=== PATIENT | female | born 1955 | race Caucasian/White ===

== ENCOUNTER 2016-11-11 14:47 | Inpatient (IN) ==
[2016-11-11 17:39] LABS: Basophils % 0.3 %; Eosinophils # 0.2 K/mcL (0.0-0.6); Eosinophils % 2.3 %; Hemoglobin 14.2 g/dL (11.5-15.4); Immature Granulocytes % 0.3 % (0-4); Lymphocytes # 1.7 K/mcL (0.6-4.6); Lymphocytes % 24.5 %; Mean Corpuscular HGB Conc 35.5 g/dL (31.6-35.5); Mean Corpuscular Hemoglobin 30.6 pg (28.0-33.3); Mean Corpuscular Volume 86.2 fL (83.0-100.0); Mean Platelet Volume 9.5 fL (9.4-12.4); Monocytes # 0.5 K/mcL (0.0-1.3); Monocytes % 7.4 %; Neutrophils # 4.5 K/mcL (1.6-8.9); Platelet Count 116 K/mcL (140-400); Red Blood Count 4.64 M/mcL (3.82-4.97); Red Cell Distribution Width 12.6 % (11.5-14.5); Segmented Neutrophils % 65.2 %
[2016-11-11 18:01] LABS: Alanine Aminotransferase 58 Units/L (0-55); Albumin 3.5 g/dL (3.5-5.0); Albumin/Globulin Ratio 0.9 (1.1-2.2); Alkaline Phosphatase 81 Units/L (38-126); Amylase 67 Units/L (25-125); Aspartate Amino Transferase 63 Units/L (5-34); BUN/Creatinine Ratio 22 (6-26); Bilirubin,Total 1.4 mg/dL (0.2-1.2); Blood Urea Nitrogen 18 mg/dL (7-20); Calcium 9.7 mg/dL (8.6-10.8); Carbon Dioxide 25 mEq/L (19-29); Chloride 106 mEq/L (98-109); Globulin 3.9 g/dL (2.4-3.5); Glucose 119 mg/dL (70-99); Lipase 21 Units/L (8-78); Osmolality,Calculated 293 (280-300); Potassium 4.3 mEq/L (3.5-4.5); Sodium 140 mEq/L (136-145); Total Protein 7.4 g/dL (6.0-8.3); eGFR For African Americans > 60 (> 60); eGFR For Non-African Americans > 60 (> 60)
[2016-11-11 19:40] LABS: Bilirubin,Urine Negative (Negative); Blood,Urine Small (Negative); Clarity,Urine Clear (Clear); Color,Urine Yellow (Yellow); Glucose,Urine (UA) Normal (Normal); Ketones,Urine Negative (Negative); Leukocyte Esterase,Urine Negative (Negative); Nitrite,Urine Negative (Negative); PH,Urine 5.5 pH Units (5.0-8.0); Protein,Urine 30 mg/dL (Neg-Trace); Specific Gravity,Urine 1.022 (1.010-1.025); Urobilinogen,Urine Normal (Normal)
[2016-11-11 19:43] LABS: Bacteria,Urine None Seen per hpf (None-Few); Hyaline Casts,Urine None Seen per lpf (None-Few); Squamous Epithelial Cell,Urine Many per lpf (None-Few)
[2016-11-11] MEDS ORDERED: 0.9 % Sodium Chloride 1,000 ML IVC ONE (19:43)
[2016-11-11] MEDS ORDERED: Ondansetron 4 MG/2 ML VIAL IVP ONE (19:44)
[2016-11-11] MEDS ORDERED: *HR* HYDROmorphone (PF) 1 MG/ML SYRINGE IVP ONE ×2 (19:44→22:28)
--- NOTE | 2016-11-11 19:46 | Emergency Department Note ---
Disposition Clinical Impression: Gallstones, Elevated bilirubin, Elevated liver enzymes Abdominal pain Qualifiers: Abdominal location: unspecified location Qualified Code(s): R10.9 - Unspecified abdominal pain Disposition: Admitted As Inpatient Condition: Good Abdominal Pain HPI - General Chief Complaint: ED Abdominal Pain Stated Complaint: back, ABD Pain N/V Time Seen by Provider: 11/11/16 19:22 Source: patient Mode of arrival: ambulatory Limitations: no limitations Nursing Notes Reviewed: Yes Vital Signs Reviewed: Yes - History of Present Illness HPI Narrative: Patient here for evaluation of right upper quadrant pain that started approximately 2 days ago. Patient has a history of hepatitis C as well as previous bladder sling and hysterectomy. Patient states that she has been having worsening abdominal pain that has been sharp and stabbing in nature. Pain located in right upper quadrant. 10 out of 10. Relatively constant in nature and worse with movements. Radiates to the back is worse with breaths. Patient describes nausea and anorexia. No vomiting. No diarrhea. Constipation over 2 weeks. 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 Patient states that she is following at outside facility but is not currently undergoing treatment. Hepatitis C is causing cirrhosis but she is not aware of plan or treatment course. Pain Scale: 8 - Related Data Home Medications Medication Instructions Recorded Confirmed Albuterol Neb [Proventil Neb] 2.5 mg IH Q6H PRN 11/11/16 11/11/16 Albuterol Sulfate [Albuterol 2 puff IH Q6HR PRN 11/11/16 11/11/16 Inhaler] Gabapentin [Neurontin] 600 mg PO TID 11/11/16 11/11/16 Ibuprofen [Motrin] 200 mg PO Q6HR 11/11/16 11/11/16 Insulin Glargine [Lantus] 50 unit SQ QAM PRN 11/11/16 11/11/16 Lidocaine 4% CRM (LMX) [Lmx 4] 1 appl TP QID PRN 11/11/16 11/11/16 Lisinopril/Hydrochlorothiazide 1 tab PO DAILY 11/11/16 11/11/16 [Zestoretic 20-25 mg Tablet] Metformin HCl [Glucophage] 1,000 mg PO BID 11/11/16 11/11/16 Polyethylene Glycol 3350 [Purelax] 17 gm PO DAILY 11/11/16 11/11/16 Allergies Allergy/AdvReac Type Severity Reaction Status Date / Time latex Allergy Hives Verified 11/11/16 15:04 propoxyphene [From Darvon] Allergy Hives Verified 11/11/16 15:04 ondansetron AdvReac Vomiting Verified 11/11/16 22:28 [From Zofran (as hydrochloride)] Review of Systems: CONSTITUTIONAL: No weight loss, fever, chills, weakness or fatigue. HEENT: Eyes: No visual changes. Ears, Nose, Throat: No hearing loss, difficulty talking or unable to swallow. SKIN: No rash or itching. CARDIOVASCULAR: No chest pain, chest pressure or chest discomfort. No palpitations or edema. RESPIRATORY: No shortness of breath, cough or sputum. GASTROINTESTINAL: abdominal pain. nausea. anorexia. GENITOURINARY: No burning on urination or hematuria. NEUROLOGICAL: No headache, dizziness, syncope, paralysis, ataxia, numbness or tingling in the extremities. No change in bowel or bladder control. MUSCULOSKELETAL: No muscle pain, back pain, joint pain or stiffness. 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: no MOLD PREPARER history Psychiatric history: Reports: no psych history, depression - Social History Smoking status: Current every day smoker Alcohol use: Reports: none Drug use: Reports: none Physical Exam General appearance: NAD, conversant Eyes: anicteric sclerae, moist conjunctivae; PERRL HENT: Atraumatic; oropharynx clear with moist mucous membranes and no mucosal ulcerations Neck: Normal inspection; Trachea midline; FROM, supple Lungs: CTA, with normal respiratory effort and no intercostal retractions CV: RRR, no MRGs Abdomen: Significant right upper quadrant tenderness with guarding and rebound. Extremities: No peripheral edema or extremity lymphadenopathy Skin: Normal temperature; no rash, ulcers or lesions Psych: Appropriate mood and affect Neuro: alert and oriented to person, place and time - General Limitations: no limitations General appearance: alert Course Course Narrative: Patient had a prolonged wait time in the emergency department with labs resulting prior to me seeing the patient. Patient has elevated bilirubin and AST ALT. No previous lab results the computer. Patient will receive right upper quadrant ultrasound. - Reevaluation(s) Reevaluation #1: Patient pain medications or by cutting her pain in half however to starting to come back. Patient will be given more medication. - Consultations Consultation #1: Patient with elevated bilirubin as well as liver enzymes. Patient's right upper quadrant scan shows gallstones with a dilated gallbladder and dilated common bile duct. This was discussed with Dr. Cuellar and the patient was accepted for further investigation and treatment. Vital Signs Temperature 97.9 F 11/11/16 15:04 Pulse Rate 76 11/11/16 15:04 Respiratory Rate 20 11/11/16 15:04 Blood Pressure 179/72 11/11/16 15:04 O2 Sat by Pulse Oximetry 96 11/11/16 15:04 Temperature 97.9 F 11/11/16 15:04 Pulse Rate 76 11/11/16 15:04 Respiratory Rate 20 11/11/16 15:04 Blood Pressure 179/72 11/11/16 15:04 O2 Sat by Pulse Oximetry 96 11/11/16 15:04 Oxygen Delivery Oxygen Delivery Room Air Abdominal Pain - Lab Data Result diagrams: 11/11/16 17:14 11/11/16 17:14 Lab Results 11/11/16 11/11/16 11/11/16 Range/Units 17:14 17:14 19:30 WBC 6.9 (4.3-11.1) K/mcL RBC 4.64 (3.82-4.97) M/mcL Hgb 14.2 (11.5-15.4) g/dL Hct 40.0 (35.3-44.9) % MCV 86.2 (83.0-100.0) fL MCH 30.6 (28.0-33.3) pg MCHC 35.5 (31.6-35.5) g/dL RDW 12.6 (11.5-14.5) % Plt Count 116 L (140-400) K/mcL MPV 9.5 (9.4-12.4) fL Immature Gran % 0.3 (0-4) % Seg Neutrophils % 65.2 % Lymphocytes % 24.5 % Monocytes % 7.4 % Eosinophils % 2.3 % Basophils % 0.3 % Neutrophils # 4.5 (1.6-8.9) K/mcL Lymphocytes # 1.7 (0.6-4.6) K/mcL Monocytes # 0.5 (0.0-1.3) K/mcL Eosinophils # 0.2 (0.0-0.6) K/mcL Basophils # 0.0 (0.0-0.2) K/mcL Sodium 140 (136-145) mEq/L Potassium 4.3 (3.5-4.5) mEq/L Chloride 106 (98-109) mEq/L Carbon Dioxide 25 (19-29) mEq/L BUN 18 (7-20) mg/dL Creatinine 0.83 (0.57-1.11) mg/dL Est GFR ( Amer) > 60 (> 60) Est GFR (Non-Af Amer) > 60 (> 60) BUN/Creatinine Ratio 22 (6-26) Glucose 119 H (70-99) mg/dL Calculated Osmolality 293 (280-300) Calcium 9.7 (8.6-10.8) mg/dL Total Bilirubin 1.4 H (0.2-1.2) mg/dL AST 63 H (5-34) Units/L ALT 58 H (0-55) Units/L Alkaline Phosphatase 81 (38-126) Units/L Serum Total Protein 7.4 (6.0-8.3) g/dL Albumin 3.5 (3.5-5.0) g/dL Globulin 3.9 H (2.4-3.5) g/dL Albumin/Globulin Ratio 0.9 L (1.1-2.2) Amylase 67 (25-125) Units/L Lipase 21 (8-78) Units/L Urine Color Yellow (Yellow) Urine Clarity Clear (Clear) Urine pH 5.5 (5.0-8.0) pH Units Ur Specific [place] 1.022 (1.010-1.025) Urine Protein 30 H (Neg-Trace) mg/dL Urine Glucose (UA) Normal (Normal) mg/dL Urine Ketones Negative (Negative) mg/dL Urine Blood Small H (Negative) Urine Nitrite Negative (Negative) Urine Bilirubin Negative (Negative) Urine Urobilinogen Normal (Normal) mg/dL Ur Leukocyte Esterase Negative (Negative) Urine Microscopic RBC 3-5 H (0-3) per hpf Urine Microscopic WBC 3-5 H (0-3) per hpf Ur Squamous Epith Cells Many H (None-Few) per lpf Urine Bacteria None Seen (None-Few) per hpf Hyaline Casts None Seen (None-Few) per lpf Ur Culture Indicated? NO (NO) Attestation Statement - Attestation Attestation: I, Jack Bonilla MD, personally evaluated this patient and discussed their management with the resident physician. I reviewed the resident's note and agree with the documented findings, medical decision making, and plan of care. 61-year-old female presents with a complaint of right upper quadrant pain radiating to the right back which started 2-3 days prior to arrival. No fever. Some nausea and vomiting. She states that she has a history of gallstones. On examination patient is a well-developed well-nourished female in no acute distress. She is alert and oriented 3. There is no cyanosis or diaphoresis. Breath sounds are clear and equal bilaterally. Heart regular rate and rhythm. Abdomen is soft with normal bowel sounds. There is mild to moderate right upper quadrant tenderness on direct palpation with no guarding or rebound tenderness. Mild right CVA tenderness. Labs reviewed. Chest x-ray negative. Abdomen x-ray shows a nonspecific bowel gas pattern. Right upper quadrant ultrasound shows cholelithiasis with a distended gallbladder and mildly dilated common bile duct. The hospitalist, Dr. Cuellar, was consulted and accepted admission of the patient.
[2016-11-11] MEDS ORDERED: *HR* Promethazine 25 MG/ML VIAL IVP ONE (19:55)
[2016-11-11] MEDS ORDERED: Naloxone 0.4 MG/ML INJ IVP PRN (22:39)
[2016-11-11] MEDS ORDERED: Ondansetron 4 MG/2 ML VIAL IVP PRN (22:39)
[2016-11-11] MEDS ORDERED: NON-FORMULARY MEDICATION 1 EACH EACH (Insulin Glargine [Lantus] 50 UNIT) SQ PRN (22:42)
--- NOTE | 2016-11-11 22:45 | Internal Med History&Physical ---
Date of Encounter: 11/11/16 Time of Encounter: 22:45 Assessment and Plan (1) Cholelithiasis Current visit: Yes Status: Acute Acute RUQ pain likely secondary to cholelithiasis - no evidence of obstruction US GB reveals cholelithiasis with distended gallbladder and mildly dilated CBD Keep patient NPO, continue IV fluids, IV morphine PRN, IV Phenergan PRN Bilirubin 1.4, alkaline phosphatase 81 Gen. surgery consult No evidence for cholecystitis - empiric Flagyl and Levaquin Qualifiers: Cholelithiasis location: gallbladder Cholecystitis presence: without cholecystitis Biliary obstruction: without biliary obstruction Qualified Code(s): K80.20 - Calculus of gallbladder without cholecystitis without obstruction (2) Type 2 diabetes mellitus Current visit: Yes Status: Chronic Type 2 diabetes mellitus, [id number], hyperglycemia Sliding scale insulin, glucose checks Qualifiers: Diabetes mellitus complication status: without complication Diabetes mellitus nursing home insulin use: without automobile damage field appraiser use Qualified Code(s): E11.9 - Type 2 diabetes mellitus without complications (3) COPD (chronic obstructive pulmonary disease) Current visit: Yes Status: Chronic Chronic COPD secondary to tobacco abuse, not in exacerbation Continue albuterol breathing treatment Qualifiers: COPD type: unspecified COPD Qualified Code(s): J44.9 - Chronic obstructive pulmonary disease, unspecified (4) Tobacco abuse Current visit: Yes Status: Chronic Smokes about 1 pack of cigarettes a day Counseled about cessation, nicotine patch (5) Hepatitis C Current visit: Yes Status: Chronic Chronic hepatitis C with hepatic cirrhosis - secondary to history of IV drug use Follows-up at outside facility Qualifiers: Viral hepatitis chronicity: chronic Qualified Code(s): B18.2 - Chronic viral hepatitis C (6) Chronic pain Current visit: Yes Status: Chronic Chronic pain secondary to osteoarthritis and also spinal stenosis and scoliosis as per patient Patient is on methadone and follows up with pain management Qualifiers: Chronic pain type: other chronic pain Qualified Code(s): G89.29 - Other chronic pain (7) DVT prophylaxis Current visit: Yes Status: Acute Continue heparin subcutaneous Internal Medicine - H&P: HPI Chief complaint: Abdominal pain Admitted From: Emergency Dept History of present illness: Ms. Casper is a 61 year old female with past medical history of diabetes, hypertension, arthritis, spinal stenosis, hepatitis C and COPD. Patient presents to the ED with complaints of abdominal pain, mainly in the right upper quadrant that started about 4 days ago. Patient states symptoms have gradually worsened. Patient initially started in her back on the right side and gradually moved to the right upper quadrant. Patient states last night pain was severe and almost 10 out of 10. She had several episodes of vomiting and continues to have nausea now. She was unable to keep anything down. She decided to come into the ED because of the sharp and stabbing pain, which is been worsening. Pain is almost constant and is worse with movement. Pain seems to be alleviated with IV pain medication. Patient denies diarrhea, denies chest pain, denies shortness of breath or palpitations denies headaches or dizziness. No other associated symptoms. Patient does have a history of hepatitis C related to IV drug use, but she has been clean for almost 30 years. Patient does follow up at his outside facility for her hepatitis C and cirrhosis. On examination patient is awake and alert. Not in any distress. She is able to provide all history. No family members at bedside. Patient has been explained about her condition and plan of care in detail. She understood and agreed. No unanswered questions. Chest x-ray does not show any acute process. Ultrasound of gallbladder shows cholelithiasis with gallbladder distention but no evidence of cholecystitis. Patient's bilirubin is elevated. She is being placed in observation in view of cholelithiasis causing right upper quadrant pain. Patient will be kept nothing by mouth and will be on IV fluids and IV pain medication as needed and IV Phenergan as needed. Surgery consult in a.m. CODE STATUS full code. Past Med Surg Social Fam HX - Past Medical History Source: patient Medical history: arthritis (spinal stenosis, scoliosis), COPD, diabetes, hepatitis, hypertension, other Psychiatric history: no psych history, depression - Past Surgical History Surgical History: hip replacement (b/l), orthopedic, other (left knee arthroscopy, b/l rotator cuff repair), other (bladder sling) - Social History Smoking Status: Current every day smoker Packs per day: 1 Smokeless Tobacco Status: No Alcohol use: none Drug use: none - Family History Father Hx Family Cardiac Disorders: Yes Mother Hx Family Medical Disorders: Yes Internal Medicine - H&P: Meds Albuterol Neb [Proventil Neb] 2.5 mg IH Q6H PRN 11/11/16 [History] Albuterol Sulfate [Albuterol Inhaler] 2 puff IH Q6HR PRN 11/11/16 [History] Gabapentin [Neurontin] 600 mg PO TID 11/11/16 [History] Ibuprofen [Motrin] 200 mg PO Q6HR 11/11/16 [History] Insulin Glargine [Lantus] 50 unit SQ QAM PRN 11/11/16 [History] Lidocaine 4% CRM (LMX) [Lmx 4] 1 appl TP QID PRN 11/11/16 [History] Lisinopril/Hydrochlorothiazide [Zestoretic 20-25 mg Tablet] 1 tab PO DAILY 11/11 [History] Metformin HCl [Glucophage] 1,000 mg PO BID 11/11/16 [History] Polyethylene Glycol 3350 [Purelax] 17 gm PO DAILY 11/11/16 [History] Allergies latex Allergy (Verified 11/11/16 15:04) Hives propoxyphene [From Darvon] Allergy (Verified 11/11/16 15:04) Hives ondansetron [From Zofran (as hydrochloride)] Adverse Reaction (Verified 22:28) Vomiting All Systems PM: A 10-system review of systems was performed and is negative for pertinent findings except as documented above in the HPI. - Constitutional Constitutional: fatigue - EENT Eyes: no blurry vision - Cardiovascular Cardiovascular ROS IM: no chest pain, no diaphoresis, no dyspnea, no dyspnea on exertion, no lightheadedness, no orthopnea - Respiratory Respiratory: no cough, no dyspnea, no dyspnea on exertion, no wheezing, no chest congestion - Gastrointestinal Gastrointestinal: abdominal pain, nausea, vomiting, no cramping, no diarrhea, no dysphagia - Genitourinary Genitourinary: flank pain, no dysuria, no urinary urgency - Musculoskeletal Musculoskeletal ROS IM: arthralgias, back pain - Neurological Neurological ROS: no abnormal gait, no abnormal speech, no dizziness, no focal weakness, no loss of vision - Constitutional Vitals: Temp Pulse Resp BP Pulse Ox 97.9 F 76 20 179/72 96 11/11/16 15:04 11/11/16 15:04 11/11/16 15:04 11/11/16 15:04 11/11/16 15:04 General appearance: Present: A&O X 3, no acute distress, answers questions appropriately - Head Head exam: Present: atraumatic - Eye Eye exam: Present: EOMI - ENT ENT exam: Present: mucous membranes dry - Neck Neck exam general surgery: Present: supple - Respiratory Respiratory exam: Present: CTAB. Absent: rhonchi, wheezes - Cardiovascular Cardiovascular exam: Present: RRR, +S1, +S2 - GI/Abdominal GI/Abdominal exam: Present: soft, tenderness (RUQ tenderness, with mild right CVA tenderness). Absent: firm, guarding, no peritoneal signs - Extremities Exam Extremities exam: Present: warm, radial pulses palpable and symetrical. Absent : cyanotic, pedal edema - Neurological Exam Neurological exam: Present: alert, oriented X3, no focal deficits Internal Med - H&P Results - Labs CBC & Chem 7: 11/11/16 17:14 11/11/16 17:14
[2016-11-11] MEDS ORDERED: Dextrose Gel 15 GM PO PRN ×2 (22:52)
[2016-11-11] MEDS ORDERED: *HR* Dextrose 50 % in Water (Syg) 50 ML SYRINGE IVP PRN (22:52)
[2016-11-11] MEDS ORDERED: D5% in Water 1,000 ML IVC PRN (22:52)
[2016-11-11 23:13] LABS: Hemoglobin A1C 6.7 %
[2016-11-11] MEDS ORDERED: Promethazine 12.5 MG in 0.9 % Sodium Chloride 50 ML IVPB PRN (23:27)
[2016-11-11] MEDS: 0.9 % Sodium Chloride 1,000 ML IVC SCH (23:40)
[2016-11-11] MEDS: MetroNIDAZOLE 500 MG/100 ML 500 MG/100 ML BAG IVPB SCH (23:41)
[2016-11-11] MEDS: Levofloxacin 750 MG/150 ML 750 MG/150 ML BAG IVPB SCH (23:42)
[2016-11-11] MEDS: Insulin LISPRO 300 UNITS/3 ML VIAL SQ SCH (23:46)
[2016-11-11] MEDS: Insulin DETEMIR 100 UNIT/ML X5UNITS SQ SCH (23:46)
[2016-11-11] MEDS: Nicotine 21 MG PATCH.TD24 TD SCH (23:52)
[2016-11-12] MEDS ORDERED: *HR* Promethazine 25 MG/ML VIAL IVP PRN (01:29)
[2016-11-12] MEDS: *HR* Morphine 2 MG/ML SYRINGE IVP PRN ×2 (03:25→07:56)
[2016-11-12] MEDS: Albuterol 2.5 MG/3 ML NEBULIZER IH SCH ×4 (03:58→21:37)
[2016-11-12 05:24] LABS: Mean Platelet Volume 9.7 fL (9.4-12.4); Red Blood Count 3.89 M/mcL (3.82-4.97); Red Cell Distribution Width 12.7 % (11.5-14.5); Segmented Neutrophils % 46.5 %
[2016-11-12 05:26] LABS: Basophils % 0.5 %; Eosinophils # 0.2 K/mcL (0.0-0.6); Eosinophils % 3.6 %; Hematocrit 33.8 % (35.3-44.9); Hemoglobin 12.1 g/dL (11.5-15.4); Immature Granulocytes % 0.2 % (0-4); Immature Platelets 2.3 % (1.1-6.1); Lymphocytes # 2.3 K/mcL (0.6-4.6); Lymphocytes % 38.9 %; Mean Corpuscular HGB Conc 35.8 g/dL (31.6-35.5); Mean Corpuscular Hemoglobin 31.1 pg (28.0-33.3); Mean Corpuscular Volume 86.9 fL (83.0-100.0); Monocytes # 0.6 K/mcL (0.0-1.3); Monocytes % 10.3 %; Neutrophils # 2.7 K/mcL (1.6-8.9); Platelet Count 107 K/mcL (140-400)
[2016-11-12] MEDS ORDERED: *HR* HYDROmorphone (PF) 1 MG/ML SYRINGE IVP ONE (05:40)
[2016-11-12] MEDS: *HR* Heparin 5,000 UNIT/ML VIAL SQ SCH ×2 (05:48→17:13)
[2016-11-12] MEDS: Famotidine 20 MG/2 ML VIAL IVP SCH ×2 (05:48→17:13)
[2016-11-12] MEDS: Insulin LISPRO 300 UNITS/3 ML VIAL SQ SCH ×3 (06:36→17:12)
[2016-11-12] MEDS: Insulin DETEMIR 100 UNIT/ML X5UNITS SQ SCH (07:57)
[2016-11-12] MEDS: Nicotine 21 MG PATCH.TD24 TD SCH (07:57)
[2016-11-12] MEDS: MetroNIDAZOLE 500 MG/100 ML 500 MG/100 ML BAG IVPB SCH ×3 (07:58→22:53)
[2016-11-12] MEDS: Levofloxacin 750 MG/150 ML 750 MG/150 ML BAG IVPB SCH (07:58)
[2016-11-12 08:18] LABS: Albumin 3.2 g/dL (3.5-5.0); Albumin/Globulin Ratio 0.8 (1.1-2.2); Bilirubin,Direct 0.6 mg/dL (0.0-0.5); Bilirubin,Indirect 0.5 mg/dL (0.0-1.2); Bilirubin,Total 1.1 mg/dL (0.2-1.2); Globulin 3.8 g/dL (2.4-3.5)
[2016-11-12] MEDS ORDERED: *HR* HYDROmorphone 2 MG/ML SYRINGE IVP PRN (10:52)
--- NOTE | 2016-11-12 11:01 | Internal Med Progress Note ---
Date of Encounter: 11/12/16 Time of Encounter: 09:40 - Assessment and plan (1) Gallstones Current Visit: Yes Status: Acute Assessment and plan: Surgery consult is in. Gallbladder Ultrasound 11/11/16 19:39 IMPRESSION: Cholelithiasis with gallbladder distention but absent sonographic Scott sign. Mildly dilated common bile duct at 7.5 mm. Consider further evaluation with hepatobiliary scan if there is continued concern for cholecystitis. Mildly nodular hepatic contour suggesting underlying cirrhosis. D/ / 11/11/2016 20:54:34 Unruly Kramer MD / bob Interpreting Provider: Unruly Kramer MD (2) Elevated bilirubin Current Visit: Yes Status: Acute (3) Elevated liver enzymes Current Visit: Yes Status: Acute Assessment and plan: ALT has returned to normal, AST is only slightly elevated at 54. Amylase and lipase are within normal limits. (4) Abdominal pain Current Visit: Yes Status: Acute Assessment and plan: Abdomen is tender in the right upper quadrant. Patient is in obvious distress. Elevated liver enzymes as well as noted cholelithiasis in the bladder ultrasound was done. She is being treated empirically with Flagyl and Levaquin. There is a GI consult as well as surgical consult. Abdomen is tender diffusely, however is worsened right upper quadrant. Hepatomegaly is noted, and Scott sign is positive. Continue pain control Continue IV fluids Wait on above consults Continue IV antibiotics Monitor labs Qualifiers: Abdominal location: right upper quadrant Qualified Code(s): R10.11 - Right upper quadrant pain (5) Type 2 diabetes mellitus Current Visit: Yes Status: Chronic Assessment and plan: Sliding scale insulin Diabetic diet when patient is able to eat. Accu-Cheks before meals and at bedtime A1c is 6.7. Qualifiers: Diabetes mellitus complication status: without complication Diabetes mellitus meterman insulin use: without senior living use Qualified Code(s): E11.9 - Type 2 diabetes mellitus without complications (6) COPD (chronic obstructive pulmonary disease) Current Visit: Yes Status: Chronic Assessment and plan: No acute exacerbation. Continue to monitor and continue home medications. Qualifiers: COPD type: unspecified COPD Qualified Code(s): J44.9 - Chronic obstructive pulmonary disease, unspecified (7) Tobacco abuse Current Visit: Yes Status: Chronic Assessment and plan: Patient is unable to discuss this at this time. We will discuss smoking cessation prior to discharge. (8) Hepatitis C Current Visit: Yes Status: Chronic Qualifiers: Viral hepatitis chronicity: chronic Qualified Code(s): B18.2 - Chronic viral hepatitis C (9) Cholelithiasis Current Visit: Yes Status: Acute Assessment and plan: Per ultrasound. Plan as above Qualifiers: Cholelithiasis location: gallbladder Cholecystitis presence: without cholecystitis Biliary obstruction: without biliary obstruction Qualified Code(s): K80.20 - Calculus of gallbladder without cholecystitis without obstruction (10) Chronic pain Current Visit: Yes Status: Chronic Qualifiers: Chronic pain type: other chronic pain Qualified Code(s): G89.29 - Other chronic pain (11) DVT prophylaxis Current Visit: Yes Status: Acute Assessment and plan: Patient is ambulatory. - Time Spent With Patient less than 15 minutes - Subjective Interval history: Patient was seen and assessed this morning at 9:40 AM. She is in obvious discomfort. She is sitting on the side of the bed and over the bedside table, shaking her leg, she is up pacing in the room, she is tearful. Right upper quadrant is tender to palpation, hepatomegaly noted. She is been unable to eat for a couple of days. She reports 10 out of 10 right upper quadrant pain with radiation around and right mid back pain. She said it is constant, dull with intermittent sharp stabbing pain. She said the pain started 4-5 days ago and she has been vomiting for 2 days with dry heaves noted now. Morphine is not helping her. She said that she has had morphine in the past which is not successful. I have switched her to Dilaudid 0.5 mg IV every 4 hours as needed. She already has Phenergan ordered. There is a GI and surgery consult pending today. - Constitutional Vitals: Temp Pulse Resp BP Pulse Ox 97.6 F 64 16 156/64 94 11/12/16 07:38 11/12/16 07:38 11/12/16 07:38 11/12/16 07:38 11/12/16 07:38 General appearance: Present: A&O X 3, no acute distress, severe distress, answers questions appropriately - Head Head exam: Present: normal inspection - Eye Eye exam: Present: normal appearance, conjuntiva pink - ENT ENT exam: Present: mucous membranes moist, normal exam - Neck Neck exam general surgery: Present: normal inspection. Absent: lymphadenopathy , tenderness - Respiratory Respiratory exam: Present: CTAB. Absent: rales, respiratory distress, rhonchi, stridor, wheezes - Cardiovascular Cardiovascular exam: Present: RRR, +S1, +S2, tachycardia. Absent: bradycardia, clicks, diastolic murmur, distant heart sounds, gallop, systolic murmur - GI/Abdominal GI/Abdominal exam: Present: diminished bowel sounds, hepatomegaly, normal bowel sounds, tenderness - Extremities Exam Extremities exam: Present: normal inspection, warm, radial pulses palpable and symetrical. Absent: pedal edema - Neurological Exam Neurological exam: Present: alert, oriented X3, no focal deficits. Absent: facial droop, speech deficit - Skin Skin exam: Present: dry, normal color, rash, warm Internal Medicine: Result - Labs CBC & Chem 7: 11/12/16 05:15 11/11/16 17:14 Labs: Short CBC 11/12/16 Range/Units 05:15 WBC 5.8 (4.3-11.1) K/mcL Hgb 12.1 D (11.5-15.4) g/dL Hct 33.8 L (35.3-44.9) % Plt Count 107 L (140-400) K/mcL Neutrophils # 2.7 (1.6-8.9) K/mcL Liver Function 11/12/16 Range/Units 07:56 Total Bilirubin 1.1 (0.2-1.2) mg/dL Direct Bilirubin 0.6 H (0.0-0.5) mg/dL AST 54 H (5-34) Units/L ALT 50 (0-55) Units/L Alkaline Phosphatase 82 (38-126) Units/L Albumin 3.2 L (3.5-5.0) g/dL Consult Discharge Plan - Plan Referrals: NO,PCP [Primary Care Provider] -
--- NOTE | 2016-11-12 12:41 | General Surgery Consult Note ---
Date of Encounter: 11/12/16 Time of Encounter: 12:35 Assessment and Plan (1) Symptomatic cholelithiasis Current Visit: Yes Status: Acute patient with US showing distended gallbladder and pain is acute RUQ which radiates to her back, nausea and emesis Slight elevation lft's yesterday, improved today will plan laparoscopic cholecystectomy, possible cholangiograms/open tomorrow. risks and benefits discussed and she wishes to proceed will check for latex IgE will order PT/inr likely child bernardo A clears today, npo midnight (2) Elevated bilirubin Current Visit: Yes Status: Acute trend lfts (3) Abdominal pain Current Visit: Yes Status: Acute have increased dilaudid, prn pain control Qualifiers: Abdominal location: right upper quadrant Qualified Code(s): R10.11 - Right upper quadrant pain (4) Type 2 diabetes mellitus Current Visit: Yes Status: Chronic clears, SSI - management per hospitalists Qualifiers: Diabetes mellitus complication status: without complication Diabetes mellitus medical terminologist insulin use: without medical terminologist use Qualified Code(s): E11.9 - Type 2 diabetes mellitus without complications (5) COPD (chronic obstructive pulmonary disease) Current Visit: Yes Status: Chronic IS, pulmonary toilet management per hospitalist Qualifiers: COPD type: unspecified COPD Qualified Code(s): J44.9 - Chronic obstructive pulmonary disease, unspecified (6) Tobacco abuse Current Visit: Yes Status: Chronic nicotine patch (7) Hepatitis C Current Visit: Yes Status: Chronic will check quant Qualifiers: Viral hepatitis chronicity: chronic Hepatic coma status: without hepatic coma Qualified Code(s): B18.2 - Chronic viral hepatitis C (8) DVT prophylaxis Current Visit: Yes Status: Acute EPCDs History of Present Illness Consult date: 11/12/16 Reason for consult: gallstones Requesting physician: Belkis Potter History of present illness: Patient is 61 yo female whith RUQ pain radiating to her back for ~5 days now and the pain has progressively gotten worse. She has been having nausea and vomiting staring yesterday without hematemesis. She denies diarrhea and states she has issues with constipation. She denies fevers, chills or night sweats. She She has hepatitis C for many years from a history of drug abuse. She has cirrhosis of the liver but unsure what child bernardo category. She has no hisory of ascites, albumin normal on presentation, pt-pending. She states she has latex allergy - hives Past Med Surg Social Fam HX - Past Medical History Source: patient Medical history: arthritis, cirrhosis, COPD, diabetes, hepatitis (C), hypertension, other (spinal stenosis, scoliosis, heart murmur) Psychiatric history: no psych history, depression - Past Surgical History Surgical History: hip replacement (bilaterally), orthopedic, other (bilateral shoulder surgery (spurs-Lt, rotator cuff repair-Rt), Lt knee sx-spurs, tubal ligation), other - Social History Smoking Status: Current every day smoker (0.5-1.5 ppd x 45 yrs) Packs per day: 1 Smokeless Tobacco Status: No Alcohol use: none Drug use: none, other ("downers") Current living situation: Home - Independent - Family History Father Hx Family Cardiac Disorders: Yes Hx Family Endocrine Disorder: Yes (DM) Mother Hx Family Genitourinary Disorders: Yes (ckd) Hx Family Medical Disorders: Yes Medications and Allergies Albuterol Neb [Proventil Neb] 2.5 mg IH Q6H PRN 11/11/16 [History] Albuterol Sulfate [Albuterol Inhaler] 2 puff IH Q6HR PRN 11/11/16 [History] Gabapentin [Neurontin] 600 mg PO TID 11/11/16 [History] Ibuprofen [Motrin] 200 mg PO Q6HR 11/11/16 [History] Insulin Glargine [Lantus] 50 unit SQ QAM PRN 11/11/16 [History] Lidocaine 4% CRM (LMX) [Lmx 4] 1 appl TP QID PRN 11/11/16 [History] Lisinopril/Hydrochlorothiazide [Zestoretic 20-25 mg Tablet] 1 tab PO DAILY 11/11 [History] Metformin HCl [Glucophage] 1,000 mg PO BID 11/11/16 [History] Polyethylene Glycol 3350 [Purelax] 17 gm PO DAILY 11/11/16 [History] Allergies latex Allergy (Verified 11/11/16 15:04) Hives propoxyphene [From Darvon] Allergy (Verified 11/11/16 15:04) Hives ondansetron [From Zofran (as hydrochloride)] Adverse Reaction (Verified 22:28) Vomiting Review of Systems All systems PM: reviewed and no additional remarkable complaints except as stated All systems PM: A 10-system review of systems was performed and is negative for pertinent findings except as documented above in the HPI. General Surgery Exam Initial Vital Signs Temp Pulse Resp BP Pulse Ox 97.9 F 76 20 179/72 96 11/11/16 15:04 11/11/16 15:04 11/11/16 15:04 11/11/16 15:04 11/11/16 15:04 - General physical appearance moderate distress, moderate pain - Eyes PERRL, normal ocular movement - ENT normal mucosa, normocephalic - Neck trachea midline - Respiratory normal expansion, clear to auscultation - Cardiovascular Cardiovascular exam: Present: RRR, no murmurs/rubs/gallops - Abdomen Abdomen general surgery: Present: bowel sounds present, soft, tender. Absent: guarding, rebound Abdominal Tenderness: Present: RUQ - Integumentary Integumentary general surgery: Present: warm and dry, no abnormal pigmentation. Absent: diaphoresis - Neurologic Present: CN 2-12 grossly intact - Musculoskeletal Present: normal gait, normal posture - Psychiatric Psychiatric general surgery: Present: A&Ox3, speech is normal Exam Initial Vital Signs Temp Pulse Resp BP Pulse Ox 97.9 F 76 20 179/72 96 11/11/16 15:04 11/11/16 15:04 11/11/16 15:04 11/11/16 15:04 11/11/16 15:04 Results - Labs 11/12/16 05:15 11/11/16 17:14 Short CBC 11/12/16 11/11/16 Range/Units 05:15 17:14 WBC 5.8 6.9 (4.3-11.1) K/mcL Hgb 12.1 D 14.2 (11.5-15.4) g/dL Hct 33.8 L 40.0 (35.3-44.9) % Plt Count 107 L 116 L (140-400) K/mcL Neutrophils # 2.7 4.5 (1.6-8.9) K/mcL BMP 11/11/16 Range/Units 17:14 Sodium 140 (136-145) mEq/L Potassium 4.3 (3.5-4.5) mEq/L Chloride 106 (98-109) mEq/L Carbon Dioxide 25 (19-29) mEq/L BUN 18 (7-20) mg/dL Creatinine 0.83 (0.57-1.11) mg/dL Glucose 119 H (70-99) mg/dL Calcium 9.7 (8.6-10.8) mg/dL Liver Function 11/12/16 11/11/16 Range/Units 07:56 17:14 Total Bilirubin 1.1 1.4 H (0.2-1.2) mg/dL Direct Bilirubin 0.6 H (0.0-0.5) mg/dL AST 54 H 63 H (5-34) Units/L ALT 50 58 H (0-55) Units/L Alkaline Phosphatase 82 81 (38-126) Units/L Albumin 3.2 L 3.5 (3.5-5.0) g/dL Urine 11/11/16 Range/Units 19:30 Urine Color Yellow (Yellow) Urine Clarity Clear (Clear) Urine pH 5.5 (5.0-8.0) pH Units Ur Specific [place] 1.022 (1.010-1.025) Urine Protein 30 H (Neg-Trace) mg/dL Urine Glucose (UA) Normal (Normal) mg/dL Vital Signs Temp Pulse Resp BP Pulse Ox 11/12/16 11:02 97.6 F 60 16 123/77 99 11/12/16 07:38 97.6 F 64 16 156/64 94 11/12/16 03:22 97.6 F 91 16 111/59 98 11/12/16 00:30 99 11/11/16 23:38 98.5 F 73 16 135/66 99 11/11/16 22:56 18 136/80 11/11/16 15:04 97.9 F 76 20 179/72 96 Intake and Output 11/11/16 11/12/16 11/12/16 23:59 07:59 15:59 Intake Total 250 / 250 250 / 250 Balance 250 / 250 250 / 250 Intake: IV Fluids 250 / 250 250 / 250 Levaquin Premix 750mg/150 150 / 150 150 / 150 mL 750 mg In 150 ml @ 100 mls/hr IVPB DAILY [facility] Rx#:[id number] Flagyl Premix 500 MG/100 100 / 100 100 / 100 ML 500 mg In 100 ml @ 100 mls/hr IVPB Q8HR [facility] Rx# :[id number] Other: Weight 79.832 kg 82.69 kg Blood Glucose* 200 99 89 Patient Weight 11/12/16 23:59 Weight 82.69 kg - Imaging US - abdomen: report reviewed Consult Discharge Plan - Plan Referrals: NO,PCP [Primary Care Provider] -
[2016-11-12] MEDS ORDERED: *HR* HYDROmorphone (PF) 1 MG/ML SYRINGE IVP PRN (12:52)
[2016-11-12] MEDS: *HR* Promethazine 25 MG/ML VIAL IVP PRN ×2 (12:57→20:18)
[2016-11-12] MEDS: *HR* HYDROmorphone 2 MG/ML SYRINGE IVP PRN ×4 (12:57→20:22)
[2016-11-12 13:48] LABS: INR 1.2; Prothrombin Time 12.6 Seconds (9.4-12.1)
[2016-11-12] MEDS ORDERED: *HR* HYDROmorphone (PF) 1 MG/ML SYRINGE IVP SCH (15:00)
[2016-11-12] MEDS: 0.9 % Sodium Chloride 1,000 ML IVC SCH (17:12)
[2016-11-12] MEDS: *HR* HYDROmorphone (PF) 1 MG/ML SYRINGE IVP PRN (22:53)
[2016-11-13] MEDS: 0.9 % Sodium Chloride 1,000 ML IVC SCH ×4 (00:09→20:32)
[2016-11-13] MEDS: Insulin LISPRO 300 UNITS/3 ML VIAL SQ SCH ×5 (00:09→23:47)
[2016-11-13] MEDS: *HR* HYDROmorphone (PF) 1 MG/ML SYRINGE IVP PRN ×2 (01:15→05:37)
[2016-11-13] MEDS: *HR* Promethazine 25 MG/ML VIAL IVP PRN ×3 (02:09→16:52)
[2016-11-13 03:36] LABS: Immature Granulocytes % 0.2 % (0-4)
[2016-11-13 03:37] LABS: Alanine Aminotransferase 53 Units/L (0-55); Albumin 3.1 g/dL (3.5-5.0); Albumin/Globulin Ratio 0.9 (1.1-2.2); Alkaline Phosphatase 70 Units/L (38-126); Aspartate Amino Transferase 64 Units/L (5-34); BUN/Creatinine Ratio 15 (6-26); Bilirubin,Direct 0.5 mg/dL (0.0-0.5); Bilirubin,Indirect 0.6 mg/dL (0.0-1.2); Bilirubin,Total 1.1 mg/dL (0.2-1.2); Blood Urea Nitrogen 12 mg/dL (7-20); Calcium 8.8 mg/dL (8.6-10.8); Carbon Dioxide 24 mEq/L (19-29); Chloride 108 mEq/L (98-109); Globulin 3.5 g/dL (2.4-3.5); Glucose 87 mg/dL (70-99); Osmolality,Calculated 289 (280-300); Potassium 3.6 mEq/L (3.5-4.5); Sodium 140 mEq/L (136-145); Total Protein 6.6 g/dL (6.0-8.3); eGFR For African Americans > 60 (> 60); eGFR For Non-African Americans > 60 (> 60)
[2016-11-13 03:38] LABS: Basophils % 0.5 %; Eosinophils # 0.1 K/mcL (0.0-0.6); Eosinophils % 3.2 %; Hematocrit 35.8 % (35.3-44.9); Hemoglobin 12.6 g/dL (11.5-15.4); Immature Platelets 2.8 % (1.1-6.1); Lymphocytes # 1.3 K/mcL (0.6-4.6); Lymphocytes % 29.1 %; Mean Corpuscular HGB Conc 35.2 g/dL (31.6-35.5); Mean Corpuscular Hemoglobin 30.6 pg (28.0-33.3); Mean Corpuscular Volume 86.9 fL (83.0-100.0); Mean Platelet Volume 9.8 fL (9.4-12.4); Monocytes # 0.4 K/mcL (0.0-1.3); Monocytes % 9.7 %; Neutrophils # 2.5 K/mcL (1.6-8.9); Platelet Count 102 K/mcL (140-400); Red Blood Count 4.12 M/mcL (3.82-4.97); Red Cell Distribution Width 12.4 % (11.5-14.5); Segmented Neutrophils % 57.3 %
[2016-11-13] MEDS: Albuterol 2.5 MG/3 ML NEBULIZER IH SCH ×4 (04:05→22:39)
[2016-11-13] MEDS: *HR* Heparin 5,000 UNIT/ML VIAL SQ SCH ×2 (05:37→16:52)
[2016-11-13] MEDS: Famotidine 20 MG/2 ML VIAL IVP SCH ×2 (05:37→16:52)
[2016-11-13] MEDS ORDERED: Lidocaine -MPF 2% 2 ML VIAL ONE (07:17)
[2016-11-13] MEDS ORDERED: *HR* Rocuronium Bromide 50 MG/5 ML VIAL ONE (07:17)
[2016-11-13] MEDS ORDERED: *HR* FentaNYL (PF) 100 MCG/2 ML VIAL ONE (07:17)
[2016-11-13] MEDS ORDERED: *HR* Midazolam HCl 2 MG/2 ML VIAL ONE (07:17)
[2016-11-13] MEDS ORDERED: *HR* Propofol 200 MG/20 ML VIAL IVP ONE (07:17)
[2016-11-13] MEDS ORDERED: *HR* Succinylcholine 200 MG/10 ML VIAL IVP ONE (07:17)
[2016-11-13] MEDS ORDERED: Albuterol 2.5 MG/3 ML NEBULIZER ONE (07:28)
[2016-11-13] MEDS ORDERED: Albuterol 2.5 MG/3 ML NEBULIZER IH ONE (07:30)
[2016-11-13] MEDS ORDERED: *HR* Promethazine 25 MG/ML VIAL IVP PRN (07:38)
[2016-11-13] MEDS ORDERED: *HR* HYDROmorphone (PF) 1 MG/ML SYRINGE IVP PRN ×3 (07:38→16:50)
--- NOTE | 2016-11-13 07:38 | Anesthesia Evaluation PreOp ---
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 History: Other (chronic pain, spinal stenosis) Other Medical History: Hepatic (hepatitis C), Diabetes Type II Anesthesia History: Past Anesthesia, Problems (PONV) Alcohol Use: none Drug use: none, other ("downers") Medications and Allergies Albuterol Neb [Proventil Neb] 2.5 mg IH Q6H PRN 11/11/16 [History] Albuterol Sulfate [Albuterol Inhaler] 2 puff IH Q6HR PRN 11/11/16 [History] Gabapentin [Neurontin] 600 mg PO TID 11/11/16 [History] Ibuprofen [Motrin] 200 mg PO Q6HR 11/11/16 [History] Insulin Glargine [Lantus] 50 unit SQ QAM PRN 11/11/16 [History] Lidocaine 4% CRM (LMX) [Lmx 4] 1 appl TP QID PRN 11/11/16 [History] Lisinopril/Hydrochlorothiazide [Zestoretic 20-25 mg Tablet] 1 tab PO DAILY 11/11 [History] Metformin HCl [Glucophage] 1,000 mg PO BID 11/11/16 [History] Polyethylene Glycol 3350 [Purelax] 17 gm PO DAILY 11/11/16 [History] Allergies latex Allergy (Verified 11/11/16 15:04) Hives propoxyphene [From Darvon] Allergy (Verified 11/11/16 15:04) Hives ondansetron [From Zofran (as hydrochloride)] Adverse Reaction (Verified 22:28) Vomiting - Meds/Allergy Pre-op Review Medications Reviewed: Yes Allergies Reviewed: Yes Beta Blockers on Current Med List: No Anesthesia Results - Labs 11/13/16 02:43 11/13/16 02:43 Anesthesia Exam Vital Signs/O2 Sat/Glucose, Most Recent Temp Pulse Resp BP Pulse Ox 98.0 F 60 16 149/81 97 11/13/16 06:41 11/13/16 06:41 11/13/16 06:41 11/13/16 06:41 11/13/16 06:41 Blood Glucose* 116 Blood glucose: 116 Height: 5'7''/1.7m Weight: 181 lbs/82.418 kg NPO (# of Hours): 8 Pain Scale: 6 (abdomen) Pain Scale Used: Numeric (1 - 10) - HEENT Pupil (Motor): EOMI Mallampati: II Teeth: Edentulous Oral Opening: Greater than 3 - BUILDING CUSTODIAL SUPERVISOR LOC: Oriented BUILDING CUSTODIAL SUPERVISOR Motor: Normal RUE, Normal LUE, Normal RLE, Normal LLE, Normal Face BUILDING CUSTODIAL SUPERVISOR Sensory: Normal: RUE, LUE, Face, Deficit: RLE, LLE - Cardiac Rhythm: Regular Murmur: Systolic - Pulmonary Breath Sounds: bilateral Clear Respiratory Effort: Symmetrical Anesthesia Assess/Plan ASA Score: 3 Modified Hailey Scale for Level of Consciousness: Cooperative, oriented, and tranquil Anesthetic Plan: General Monitoring Plan: Standard Monitors Recovery Plan: PACU
[2016-11-13] MEDS ORDERED: Dexamethasone 4 MG/ML VIAL ONE (08:29)
[2016-11-13] MEDS ORDERED: *HR* HYDROmorphone 2 MG/ML SYRINGE ONE (08:35)
[2016-11-13] MEDS: Levofloxacin 750 MG/150 ML 750 MG/150 ML BAG IVPB SCH (08:46)
[2016-11-13] MEDS ORDERED: Metoclopramide 10 MG/2 ML VIAL ONE (08:57)
--- NOTE | 2016-11-13 09:19 | Operative Note ---
Date of procedure: 11/13/16 Pre-op diagnosis: symptomatic cholelithiasis Post-op diagnosis: other (acute cholecystitis) Procedure: Laparoscopic cholecystectomy with intraop cholangiograms Complications: none immediate Anesthesia: GETA, local Local Anesthetics: 0.5% Sensorcaine HCL SubQ (cc) (20), Isovue 300 Intravenous ( cc) (15), Other (0.5 mg glucagon) Surgeon: Elaine Worley Procurement Officer: Nat Schneider Estimated blood loss (cc): 10 Specimen: gallbladder and contents Condition: stable Disposition: PACU Procedure in Detail: The patient was brought into the operating suite and placed supine on the operating table. Sign-in was performed and everyone was in agreement. Anesthesia was induced and patient was endotracheally intubated by anesthesia without incident and they also placed an OG tube. The abdomen was prepped and draped in the usual sterile fashion. A timeout was performed again everyone was in agreement. A supraumbilical incision was made through the skin into the subcutaneous tissue with an 11 blade. Towel clamps were placed on either side of the umbilicus for retraction. S retractors were used to dissect down to the anterior abdominal wall linea alba fascia. A Veress needle was placed through this incision and a water drop test confirmed placement and the abdomen was insufflated. The abdomen was entered with a 5 mm 0 degree laparoscope on a 5 mm Optiview trocar. The area and entry was visualized was no bleeding and no apparent bowel injury. A 5 mm subxiphoid port was placed under direct visualization after first incising the skin with an 11 blade. A right upper quadrant subcostal position midclavicular line 5 mm port was placed under direct visualization after first incising skin with 11 blade. The laparoscope was placed in this and we exchanged the supraumbilical port for a 12 mm port under direct visualization. The last 5 mm port was placed in the right upper quadrant subcostal position anterior axillary line after first incising the skin with an 11 blade. The patient was placed in steep reverse Trendelenburg left side down position. The patient is known to have cirrhosis from hepatitis C and the liver was very nodular in appearance. The dome of the gallbladder was grasped and retracted cephalad. Omental adhesions to the body and infundibulum of the gallbladder were taken down bluntly with the [place]. The infundibulum was grasped and retracted laterally. Using the [place] we dissected out the cystic duct and cystic artery. Two 5 mm Hemoclips were placed proximally on the cystic artery and one distally and it was transected with curved scissors. A 5 mm metal Hemoclip was placed proximally on the cystic duct. The cystic duct was partially transected with curved scissors. Using the Padron clamp, the cholangiocatheter was introduced into the partially transected cystic duct with the [place]. A metal 5 mm hemoclip was placed across the proximal cystic duct and the cholangiocatheter. The catheter flushed easily. The patient was placed in Trendelenberg position. Cholangiograms were obtained showing contrast up into the left and right intrahepatic ducts down through the common hepatic and common bile duct into the duodenum. 15cc of Isovue was used for the cholangiograms patient was returned to reverse Trendelenburg left side down position. The clip on the cholangiocatheter and proximal cystic duct was removed as well as the cholangiocatheter. Two 5 mm hemoclips were placed distally on the cystic duct and it was transected with curved scissors. The gallbladder was removed off the cystic plate with the Bovie. Any bleeding points were stopped with the Bovie. The gallbladder was placed in a laparoscopic Endo Catch bag and removed via the supraumbilical incision site. The inferior edge of the liver was bluntly retracted cephalad and the cystic plate was copiously irrigated with sterile saline. There was no bleeding or apparent bile leak from the cystic plate and the clips on the cystic artery and duct were intact. All irrigation was suctioned free from the abdomen. All insufflation was suctioned free from the abdomen and the ports removed. The abdominal wall at the supraumbilical incision site was closed with a 0 Vicryl [id number] stitch. 20 mL of 0.5% Marcaine was injected subcutaneously at the 4 port sites. The skin at the three 5 mm port sites were closed with 4-0 Monocryl interrupted subcuticular stitches. The skin at the supraumbilical incision site was closed with a 4-0 Monocryl running subcuticular stitch. Steri -Strips were applied to all wounds. The patient was awoken in the operating suite having tolerated the procedure well and were taken to PACU in stable condition after all lap and ensuring counts were correct at the end of the case.
--- NOTE | 2016-11-13 10:07 | Anesthesia Evaluation Post Op ---
Date of Encounter: 11/13/16 Time of Encounter: 10:06 - Vital Signs Vital Signs: Vital Signs/O2 Sat, Most Current Temp Pulse Resp BP Pulse Ox 98.1 F 79 18 147/82 99 11/13/16 09:59 11/13/16 09:59 11/13/16 09:59 11/13/16 09:59 11/13/16 09:59 - Lungs Lungs: Clear Ascult./Percussion - Airway Airway: Non-obstructed - Cardiovascular Regular Rate - Mental Status Mental Status: Asleep with brisk response to light stimulation - Pain Pain Scale: 4 Pain Scale used: Numeric (1 - 10) - Nausea Vomiting Nausea Vomiting: Not Present - Hydration Hydration: NPO, Has not voided - Discharge PostOp Status: Transfer Patient to floor
[2016-11-13] MEDS ORDERED: Dextrose Gel 15 GM PO PRN ×2 (10:09)
[2016-11-13] MEDS ORDERED: Naloxone 0.4 MG/ML INJ IVP PRN (10:09)
[2016-11-13] MEDS ORDERED: *HR* Dextrose 50 % in Water (Syg) 50 ML SYRINGE IVP PRN (10:09)
[2016-11-13] MEDS ORDERED: *HR* OxyCODONE Immed Rel 5 MG TABLET PO PRN (10:09)
[2016-11-13] MEDS: MetroNIDAZOLE 500 MG/100 ML 500 MG/100 ML BAG IVPB SCH (10:09)
[2016-11-13] MEDS ORDERED: D5% in Water 1,000 ML IVC PRN (10:09)
--- NOTE | 2016-11-13 14:47 | Internal Med Progress Note ---
Date of Encounter: 11/13/16 Time of Encounter: 11:30 - Assessment and plan (1) Gallstones Current Visit: Yes Status: Acute Assessment and plan: Patient had laparoscopic cholecystectomy today. We will continue to monitor her condition and treat pain. Surgery following. Barring complications, patient will be discharged tomorrow. (2) Elevated bilirubin Current Visit: Yes Status: Acute (3) Elevated liver enzymes Current Visit: Yes Status: Acute Assessment and plan: Laparoscopic cholecystectomy today. Plan as above. (4) Abdominal pain Current Visit: Yes Status: Acute Assessment and plan: Laparoscopic cholecystectomy today. Abdomen tender postop. We will continue to monitor. Qualifiers: Abdominal location: right upper quadrant Qualified Code(s): R10.11 - Right upper quadrant pain (5) Type 2 diabetes mellitus Current Visit: Yes Status: Chronic Assessment and plan: Continue Accu-Cheks before meals and at bedtime. Diabetic diet when tolerated. Qualifiers: Diabetes mellitus complication status: without complication Diabetes mellitus nursing home insulin use: without nursing home use Qualified Code(s): E11.9 - Type 2 diabetes mellitus without complications (6) COPD (chronic obstructive pulmonary disease) Current Visit: Yes Status: Chronic Assessment and plan: No acute exacerbation. Continue home medications and monitor condition. Qualifiers: COPD type: unspecified COPD Qualified Code(s): J44.9 - Chronic obstructive pulmonary disease, unspecified (7) Tobacco abuse Current Visit: Yes Status: Chronic Assessment and plan: Patient was drowsy today. We will discuss smoking cessation tomorrow when she is more alert. (8) Hepatitis C Current Visit: Yes Status: Chronic Assessment and plan: Chronic hepatitis C with hepatic cirrhosis due to history of IV drug use. She does follow-up at an outside facility. Follow-up after surgery of discharge. Qualifiers: Viral hepatitis chronicity: chronic Hepatic coma status: without hepatic coma Qualified Code(s): B18.2 - Chronic viral hepatitis C (9) Cholelithiasis Current Visit: Yes Status: Resolved Qualifiers: Cholelithiasis location: gallbladder Cholecystitis presence: without cholecystitis Biliary obstruction: without biliary obstruction Qualified Code(s): K80.20 - Calculus of gallbladder without cholecystitis without obstruction (10) Chronic pain Current Visit: Yes Status: Chronic Assessment and plan: Chronic pain secondary to osteoarthritis and spinal stenosis. Patient is on methadone and follows up with pain management. Continue treatment outpatient after discharge. Qualifiers: Chronic pain type: other chronic pain Qualified Code(s): G89.29 - Other chronic pain (11) DVT prophylaxis Current Visit: Yes Status: Acute Assessment and plan: Postoperatively, patient has SCDs. - Subjective Interval history: Patient was seen and assessed at 11:30 AM. She just returned from surgery. She is still very drowsy she did briefly to answer questions. There is a male at the bedside. Vitals were stable her abdomen is soft, it was tender to even light palpation with stethoscope during auscultation. She had an ice pack to low abdomen there was some bruising noted. Puncture wound/incisions were intact Steri-Strips were intact. There was no bleeding or drainage. - Constitutional Vitals: Temp Pulse Resp BP Pulse Ox 97.5 F L 69 15 159/84 97 11/13/16 12:00 11/13/16 14:03 11/13/16 12:00 11/13/16 14:03 11/13/16 14:03 General appearance: Present: A&O X 1, pleasant, no acute distress, severe distress, answers questions appropriately - Head Head exam: Present: normal inspection - Eye Eye exam: Present: normal appearance, conjuntiva pink - ENT ENT exam: Present: mucous membranes moist, normal exam - Respiratory Respiratory exam: Present: CTAB. Absent: respiratory distress, stridor, wheezes - Cardiovascular Cardiovascular exam: Present: RRR, +S1, +S2. Absent: diastolic murmur, systolic murmur - GI/Abdominal GI/Abdominal exam: Present: diminished bowel sounds, soft, tenderness. Absent: distended, normal bowel sounds - Neurological Exam Neurological exam: Present: altered. Absent: facial droop, speech deficit - Skin Skin exam: Present: dry, normal color, warm Internal Medicine: Result - Labs CBC & Chem 7: 11/13/16 02:43 11/13/16 02:43 Labs: Short CBC 11/13/16 Range/Units 02:43 WBC 4.3 (4.3-11.1) K/mcL Hgb 12.6 (11.5-15.4) g/dL Hct 35.8 (35.3-44.9) % Plt Count 102 L (140-400) K/mcL Neutrophils # 2.5 (1.6-8.9) K/mcL BMP 11/13/16 02:43 Sodium 140 Potassium 3.6 Chloride 108 Carbon Dioxide 24 BUN 12 Creatinine 0.79 Glucose 87 Calcium 8.8 Liver Function 11/13/16 Range/Units 02:43 Total Bilirubin 1.1 (0.2-1.2) mg/dL Direct Bilirubin 0.5 (0.0-0.5) mg/dL AST 64 H (5-34) Units/L ALT 53 (0-55) Units/L Alkaline Phosphatase 70 (38-126) Units/L Albumin 3.1 L (3.5-5.0) g/dL - ABG Interpretation ABG results: PT/INR, D-dimer PT 12.6 Seconds (9.4-12.1) H 11/12/16 13:26 - Impressions Impressions Cholangiogram,Operative 11/13/16 00:00 IMPRESSION: Spot fluoroscopic images from intraoperative cholangiogram. No filling defect or extravasation of contrast. D/ / 11/13/2016 09:23:19 Ayden Zuniga MD / bcarter Interpreting Provider: Ayden Zuniga MD Consult Discharge Plan - Plan Referrals: NO,PCP [Primary Care Provider] -
[2016-11-13] MEDS: Gabapentin 300 MG CAPSULE PO SCH ×2 (15:11→20:40)
[2016-11-13] MEDS: Nicotine 21 MG PATCH.TD24 TD SCH (19:29)
[2016-11-13] MEDS: Insulin DETEMIR 100 UNIT/ML X5UNITS SQ SCH (19:29)
[2016-11-13] MEDS: *HR* OxyCODONE Immed Rel 5 MG TABLET PO PRN (20:32)
[2016-11-14] MEDS: *HR* OxyCODONE Immed Rel 5 MG TABLET PO PRN ×3 (01:44→14:01)
[2016-11-14 03:33] LABS: Hemoglobin 12.5 g/dL (11.5-15.4); Immature Granulocytes % 0.4 % (0-4); Red Cell Distribution Width 12.6 % (11.5-14.5)
[2016-11-14 03:35] LABS: Basophils % 0.3 %; Eosinophils # 0.1 K/mcL (0.0-0.6); Hematocrit 35.3 % (35.3-44.9); Lymphocytes % 26.9 %; Mean Corpuscular HGB Conc 35.4 g/dL (31.6-35.5); Mean Corpuscular Hemoglobin 30.9 pg (28.0-33.3); Mean Corpuscular Volume 87.4 fL (83.0-100.0); Mean Platelet Volume 9.7 fL (9.4-12.4); Monocytes # 0.7 K/mcL (0.0-1.3); Monocytes % 9.9 %; Platelet Count 105 K/mcL (140-400); Red Blood Count 4.04 M/mcL (3.82-4.97); Segmented Neutrophils % 61.5 %
[2016-11-14] MEDS: Albuterol 2.5 MG/3 ML NEBULIZER IH SCH ×3 (03:37→16:34)
[2016-11-14 03:39] LABS: Neutrophils # 4.6 K/mcL (1.6-8.9)
[2016-11-14 03:49] LABS: BUN/Creatinine Ratio 18 (6-26); Blood Urea Nitrogen 14 mg/dL (7-20); Calcium 8.3 mg/dL (8.6-10.8); Carbon Dioxide 25 mEq/L (19-29); Chloride 107 mEq/L (98-109); Glucose 180 mg/dL (70-99); Osmolality,Calculated 291 (280-300); Sodium 138 mEq/L (136-145); eGFR For African Americans > 60 (> 60); eGFR For Non-African Americans > 60 (> 60)
[2016-11-14] MEDS: Famotidine 20 MG/2 ML VIAL IVP SCH (05:33)
[2016-11-14] MEDS: *HR* Heparin 5,000 UNIT/ML VIAL SQ SCH (05:33)
[2016-11-14] MEDS: Insulin LISPRO 300 UNITS/3 ML VIAL SQ SCH ×2 (05:45→12:31)
[2016-11-14] MEDS ORDERED: Nicotine 21 MG PATCH.TD24 TD SCH (09:00)
[2016-11-14] MEDS ORDERED: Insulin DETEMIR 100 UNIT/ML X5UNITS SQ SCH (09:00)
[2016-11-14] MEDS: Gabapentin 300 MG CAPSULE PO SCH ×2 (09:42→14:00)
[2016-11-14] MEDS: 0.9 % Sodium Chloride 1,000 ML IVC SCH (09:43)
[2016-11-14 10:28] VITALS: BP 152/85
--- NOTE | 2016-11-14 12:54 | General Surgery Progress Note ---
Date of Encounter: 11/14/16 Time of Encounter: 12:45 - Assessment and Plan (1) Symptomatic cholelithiasis Current Visit: Yes Status: Resolved Subjective Patient reports: no new complaints, feels better, tolerating a regular diet, voiding w/o difficulty, afebrile, other (Patient states that she is feeling much better) Objective Vital Signs - Last 8 Hours Temp Pulse Resp BP Pulse Ox 11/14/16 10:27 98.9 F 70 17 152/85 11/14/16 09:42 95 11/14/16 06:44 98.3 F 67 16 134/77 95 Intake and Output 11/13/16 11/14/16 11/14/16 23:59 07:59 15:59 Intake Total 1000 / 1000 1240 / 1240 Balance 1000 / 1000 1240 / 1240 Intake: IV Fluids 1000 / 1000 1000 / 1000 0.9 % Sodium Chloride 1, 1000 / 1000 1000 / 1000 000 ML @ 80 mls/hr IVC . [id number] FABIANO Rx#: [id number] Oral 240 / 240 Other: Meal Breakfast Percent of Meal Consumed 0% Weight 83.869 kg Blood Glucose* 164 191 136 Patient Weight 11/14/16 23:59 Weight 83.869 kg - General physical appearance well developed, well nourished, no distress - Eyes normal ocular movement - ENT normal mucosa, atraumatic, normocephalic - Respiratory normal respiratory effort - Abdomen Abdomen: Present: soft, tender (expected post-operative tenderness) - Incision Incision: Present: clean and dry, intact - Neurologic CN 2-12 grossly intact - Psychiatric oriented to time, oriented to person, oriented to place, speech is normal, memory intact - Labs 11/14/16 02:47 11/14/16 02:47 Diabetes panel 11/14/16 Range/Units 02:47 Sodium 138 (136-145) mEq/L Potassium 4.0 (3.5-4.5) mEq/L Chloride 107 (98-109) mEq/L Carbon Dioxide 25 (19-29) mEq/L BUN 14 (7-20) mg/dL Creatinine 0.78 (0.57-1.11) mg/dL Glucose 180 H (70-99) mg/dL Calcium 8.3 L (8.6-10.8) mg/dL Calcium panel 11/14/16 Range/Units 02:47 Calcium 8.3 L (8.6-10.8) mg/dL Pituitary panel 11/14/16 Range/Units 02:47 Sodium 138 (136-145) mEq/L Potassium 4.0 (3.5-4.5) mEq/L Chloride 107 (98-109) mEq/L Carbon Dioxide 25 (19-29) mEq/L BUN 14 (7-20) mg/dL Creatinine 0.78 (0.57-1.11) mg/dL Glucose 180 H (70-99) mg/dL Calcium 8.3 L (8.6-10.8) mg/dL Adrenal panel 11/14/16 Range/Units 02:47 Sodium 138 (136-145) mEq/L Potassium 4.0 (3.5-4.5) mEq/L Chloride 107 (98-109) mEq/L Carbon Dioxide 25 (19-29) mEq/L BUN 14 (7-20) mg/dL Creatinine 0.78 (0.57-1.11) mg/dL Glucose 180 H (70-99) mg/dL Calcium 8.3 L (8.6-10.8) mg/dL - VTE Documentation of Mechanical Device: Intermittent pneumatic compression device Consult Discharge Plan - Plan Additional Instructions: #1 may shower, no tub bath for 2 weeks #2 wash incisions with soap and water and pat dry daily #3 no lifting, pushing, pulling more than 15 pounds for the next 2 weeks #4 no driving until off narcotics for 24 hours and able to safely react in the car #5 may climb stairs Referrals: NO,PCP [Primary Care Provider] - Lisa Solomon REGISTERED RESPIRATORY TECHNICIAN [Advanced Practice Nurse] - 11/28/16 8:45 am (surgery follow-up) Prescriptions: OxyCODONE Immed Rel [Roxicodone 5 MG] 5 mg PO Q4HR PRN #30 tablet PRN Reason: Pain Docusate [Colace] 100 mg PO BID #30 capsule - Attending Attestation I examined this patient and my medical decision-making was reviewed with the DISTANCE LEARNING ADMINISTRATOR/PA/Advanced Practice Nurse/Resident Physician. I agree with the documented findings, disposition and treatment plan as described except to the extent set forth below.
--- NOTE | 2016-11-14 16:24 | Discharge Summary ---
Date of Encounter: 11/14/16 Time of Encounter: 08:55 - Discharge Diagnosis (1) Gallstones Priority: Primary Status: Resolved Comments: Result. Patient had lap cholecystectomy yesterday. (2) Elevated bilirubin Priority: Secondary Status: Resolved (3) Elevated liver enzymes Priority: Secondary Status: Resolved (4) Abdominal pain Priority: Secondary Status: Acute Comments: She was admitted for right upper quadrant abdominal pain, nausea vomiting. Patient was in obvious distress. Laparoscopic cholecystectomy yesterday. Now patient just has post op abdominal pain. Incisions look good no drainage or bleeding from incisions. Steri-Strips are intact. Patient reports increased gas, explained to her that this was normal and expected. Postop follow-up instructions per surgery. Patient states that she feels significantly better than she did yesterday. Will be sent home with prescriptions by surgery. Qualifiers: Abdominal location: right upper quadrant Qualified Code(s): R10.11 - Right upper quadrant pain (5) Type 2 diabetes mellitus Priority: Secondary Status: Chronic Comments: Continue home medications. Continue Accu-Cheks at home. Qualifiers: Diabetes mellitus complication status: without complication Diabetes mellitus joint terminal attack controller insulin use: without [facility] use Qualified Code(s): E11.9 - Type 2 diabetes mellitus without complications (6) COPD (chronic obstructive pulmonary disease) Priority: Secondary Status: Chronic Comments: No acute exacerbation. Continue home medications. Qualifiers: COPD type: unspecified COPD Qualified Code(s): J44.9 - Chronic obstructive pulmonary disease, unspecified (7) Tobacco abuse Priority: Secondary Status: Chronic Comments: Patient states that she is not interested in smoking cessation at this time. (8) Hepatitis C Priority: Secondary Status: Chronic Comments: Chronic. Patient follows up at [facility]. She will need to follow-up after the surgery. Patient is aware. Qualifiers: Viral hepatitis chronicity: chronic Hepatic coma status: without hepatic coma Qualified Code(s): B18.2 - Chronic viral hepatitis C (9) Cholelithiasis Priority: Secondary Status: Resolved Comments: Laparoscopic cholecystectomy yesterday. Qualifiers: Cholelithiasis location: gallbladder Cholecystitis presence: without cholecystitis Biliary obstruction: without biliary obstruction Qualified Code(s): K80.20 - Calculus of gallbladder without cholecystitis without obstruction (10) Chronic pain Priority: Secondary Status: Chronic Comments: Patient has chronic pain secondary to osteoarthritis and spinal stenosis. She is on methadone and follows up with pain management. Follow up outpatient after discharge. Qualifiers: Chronic pain type: other chronic pain Qualified Code(s): G89.29 - Other chronic pain (11) DVT prophylaxis Priority: Secondary Status: Acute Comments: Patient has been ambulatory all day. Postoperatively she had SCDs. - Discharge Medications Prescriptions: OxyCODONE Immed Rel [Roxicodone 5 MG] 5 mg PO Q4HR PRN #30 tablet PRN Reason: Pain Docusate [Colace] 100 mg PO BID #30 capsule Home Medications: Albuterol Neb [Proventil Neb] 2.5 mg IH Q6H PRN 11/11/16 [History] Albuterol Sulfate [Albuterol Inhaler] 2 puff IH Q6HR PRN 11/11/16 [History] Gabapentin [Neurontin] 600 mg PO TID 11/11/16 [History] Ibuprofen [Motrin] 200 mg PO Q6HR 11/11/16 [History] Insulin Glargine [Lantus] 50 unit SQ QAM PRN 11/11/16 [History] Lidocaine 4% CRM (LMX) [Lmx 4] 1 appl TP QID PRN 11/11/16 [History] Lisinopril/Hydrochlorothiazide [Zestoretic 20-25 mg Tablet] 1 tab PO DAILY 11/11 [History] Metformin HCl [Glucophage] 1,000 mg PO BID 11/11/16 [History] Polyethylene Glycol 3350 [Purelax] 17 gm PO DAILY 11/11/16 [History] Docusate [Colace] 100 mg PO BID #30 capsule 11/14/16 [Rx] OxyCODONE Immed Rel [Roxicodone 5 MG] 5 mg PO Q4HR PRN #30 tablet 11/14/16 [Rx] Allergies/Adverse Reactions: Allergies acetaminophen Allergy (Verified 11/13/16 09:36) Gastrointestinal Upset Cirrohsis of the liver latex Allergy (Verified 11/11/16 15:04) Hives propoxyphene [From Darvon] Allergy (Verified 11/11/16 15:04) Hives ondansetron [From Zofran (as hydrochloride)] Adverse Reaction (Verified 22:28) Vomiting Date of admission: 11/13/16 14:58 Primary care physician: PCP NO Discharging clinician: Belkis Potter Anticipated date of discharge: 11/14/16 - Patient Status Disposition: Home, Self-Care Functional capacity at discharge: independent ambulation Overall status at discharge: patient is back to baseline - Discharge Instructions Follow Up With: Lisa Solomon SEISMIC ENGINEER [Advanced Practice Nurse] - 11/28/16 8:45 am (surgery follow-up) NO,PCP [Primary Care Provider] - Additional Instructions: #1 may shower, no tub bath for 2 weeks #2 wash incisions with soap and water and pat dry daily #3 no lifting, pushing, pulling more than 15 pounds for the next 2 weeks #4 no driving until off narcotics for 24 hours and able to safely react in the car #5 may climb stairs - Diet and Activity Activity: increase activity as tolerated Diet: advance to your usual diet, low fat, low cholesterol Interval History: Patient was admitted on November 11 with complaint of right upper quadrant pain. Mrs. Casper is a 61-year-old female with a prior medical history of chronic pain, IV drug use, hepatitis, type 2 diabetes, and COPD. Again having right upper quadrant pain that started about 4 days prior to arrival. Patient dates his symptoms just kept becoming worse. She did have radiation of pain to right back. Rates it a 10 on the 10 dull and aching with nausea and vomiting. She denies diarrhea, chest pain, shortness of breath, palpitations, headaches, or dizziness. She follows up outpatient at [facility] for her hepatitis, states that she has not had any IV drug use for about 30 years. When I saw patient initially she was in obvious distress, unable to sit, unable to think or talk to complete exam. Abdomen was tender diffusely, worse in right upper quadrant. She was nauseated and reported that she had not been able to eat. Her liver enzymes were elevated on arrival. She was seen and assessed by surgery, she had a laparoscopic cholecystectomy yesterday. Patient has had significant improvement after surgery. Her abdomen remains slightly tender, however is postop pain. Abdomen is slightly distended, tender, bowel sounds. Patient is able to eat and drink. She denies nausea. She is afebrile vitals are within normal limits. Labs are within normal limits. Patient will follow up with surgery. She will need to follow-up with her primary care physician. Hospital course: Ms. Casper is a 61 year old female - Time Spent with Patient Total time spent providing and/or coordinating discharge services: Less than 30 minutes - Constitutional Vitals: Temp Pulse Resp BP Pulse Ox 98.9 F 70 17 152/85 95 11/14/16 10:27 11/14/16 10:27 11/14/16 10:27 11/14/16 10:27 11/14/16 09:42 General appearance: Present: A&O X 1, pleasant, no acute distress, severe distress, answers questions appropriately - Head Head exam: Present: normal inspection - Eye Eye exam: Present: normal appearance, conjuntiva pink - ENT ENT exam: Present: mucous membranes moist, normal exam - Neck Neck exam general surgery: Present: normal inspection, tenderness. Absent: lymphadenopathy - Respiratory Respiratory exam: Present: CTAB. Absent: rales, respiratory distress, rhonchi, wheezes - Cardiovascular Cardiovascular exam: Present: RRR, +S1, +S2. Absent: diastolic murmur, systolic murmur - GI/Abdominal GI/Abdominal exam: Present: distended, normal bowel sounds, soft, tenderness. Absent: hepatomegaly - Neurological Exam Neurological exam: Present: alert, oriented X3, no focal deficits, strengths equal and symetr throughout. Absent: facial droop, speech deficit - Skin Skin exam: Present: dry, normal color, warm - VTE Documentation of Mechanical Device: Intermittent pneumatic compression device
[2016-11-17 12:12] LABS: HCV Quant Interpretation DETECTED (Not Detected)
[2016-11-21 10:33] LABS: HCV Genotype by Sequencing 2B
== END 2016-11-14 17:15 | disposition home or self-care (01) | DRG 419 ==
LOC: 3BNU 14:47 → EMEROO 14:47 → 3BNU 22:58
PROVIDERS: ADMIT Family Medicine; ATTEND Registered Nurse

== ENCOUNTER 2017-04-14 13:39 | Inpatient (IN) ==
[2017-04-14] MEDS ORDERED: *HR* HYDROmorphone (PF) 1 MG/ML SYRINGE IVP ONE ×3 (14:25→17:11)
[2017-04-14 14:56] LABS: Basophils % 0.2 %; Eosinophils # 0.2 K/mcL (0.0-0.6); Eosinophils % 1.6 %; Hematocrit 34.5 % (35.3-44.9); Hemoglobin 12.7 g/dL (11.5-15.4); Immature Granulocytes % 0.8 % (0-4); Lymphocytes # 1.9 K/mcL (0.6-4.6); Lymphocytes % 15.8 %; Mean Corpuscular HGB Conc 36.8 g/dL (31.6-35.5); Mean Corpuscular Hemoglobin 31.8 pg (28.0-33.3); Mean Corpuscular Volume 86.5 fL (83.0-100.0); Mean Platelet Volume 9.6 fL (9.4-12.4); Monocytes # 1.1 K/mcL (0.0-1.3); Monocytes % 9.1 %; Neutrophils # 8.5 K/mcL (1.6-8.9); Platelet Count 123 K/mcL (140-400); Red Blood Count 3.99 M/mcL (3.82-4.97); Red Cell Distribution Width 12.9 % (11.5-14.5); Segmented Neutrophils % 72.5 %
[2017-04-14 15:22] LABS: BUN/Creatinine Ratio 18 (6-26); Blood Urea Nitrogen 15 mg/dL (7-20); Calcium 8.7 mg/dL (8.6-10.8); Carbon Dioxide 24 mEq/L (19-29); Chloride 100 mEq/L (98-109); Osmolality,Calculated 282 (280-300); Potassium 3.8 mEq/L (3.5-4.5); Sodium 130 mEq/L (136-145); eGFR For African Americans > 60 (> 60); eGFR For Non-African Americans > 60 (> 60)
[2017-04-14 15:23] LABS: Glucose 307 mg/dL (70-99)
[2017-04-14] MEDS ORDERED: Vancomycin 1,000 MG in D5% in Water 250 ML IVPB ONE (17:25)
--- NOTE | 2017-04-14 17:33 | Emergency Department Note ---
Disposition Clinical Impression: Cellulitis of left lower extremity, Left leg pain Disposition: Admitted As Inpatient Condition: Fair Referrals: NONE,PCP [Primary Care Provider] - Extremity Problem HPI - General Chief complaint: ED Extremity Problem,Nontraumatic Stated complaint: Swollen Left leg Time Seen by Provider: 04/14/17 13:55 Source: patient Limitations: no limitations Nursing Notes Reviewed: Yes Vital Signs Reviewed: Yes - History of Present Illness HPI Narrative: Patient's 61-year-old female complains of left lower extremity swelling and edema and pain 2 days. Patient states her left lower extremity started to become edematous and painful with no known source of trauma or injury. Patient pain . Extremities currently 10/10. Patient states she was worried that she would have to have a Doppler scan of the leg and concern about the pain and was reason why she delayed coming to the emergency department. Patient states the pain is currently unbearable when she walks. Patient currently unable to weight -bear on the leg. Patient had surgery performed on the left foot back in November. Patient has no previous history of DVT Pain Scale: 2 - Related Data Home Medications Medication Instructions Recorded Confirmed Albuterol Neb [Proventil Neb] 2.5 mg IH Q6H PRN 11/11/16 11/11/16 Albuterol Sulfate [Albuterol 2 puff IH Q6HR PRN 11/11/16 11/11/16 Inhaler] Ibuprofen [Motrin] 200 mg PO Q6HR 11/11/16 11/11/16 Insulin Glargine [Lantus] 50 unit SQ QAM PRN 11/11/16 11/11/16 Metformin HCl [Glucophage] 1,000 mg PO BID 11/11/16 11/11/16 Polyethylene Glycol 3350 [Purelax] 17 gm PO DAILY 11/11/16 11/11/16 Chlorthalidone [Chlorthalidone] 25 mg PO DAILY 04/14/17 04/14/17 Cyclobenzaprine [Flexeril] 10 mg PO HS 04/14/17 04/14/17 Docusate [Colace] 100 mg PO TID 04/14/17 04/14/17 Gabapentin [Neurontin] 300 mg PO TID 04/14/17 04/14/17 Lidocaine 1 appl TP QID PRN 04/14/17 04/14/17 Lisinopril [Zestril] 40 mg PO DAILY 04/14/17 04/14/17 Allergies Allergy/AdvReac Type Severity Reaction Status Date / Time acetaminophen Allergy Gastrointestinal Verified 04/14/17 14:08 Upset latex Allergy Hives Verified 04/14/17 14:08 propoxyphene [From Darvon] Allergy Hives Verified 04/14/17 14:08 ondansetron AdvReac Vomiting Verified 04/14/17 14:08 [From Zofran (as hydrochloride)] All systems ED: reviewed and negative except as stated. Review of Systems: As Per HPI Constitutional: Denies: fever, chills, weakness Eyes: Denies: eye pain, eye discharge ENT ED: Denies: congestion Cardiovascular: Reports: edema. Denies: chest pain, palpitations, dyspnea on exertion, orthopnea, syncope Respiratory: Denies: cough, dyspnea, wheezes Gastrointestinal: Denies: abdominal pain, nausea, vomiting, diarrhea Genitourinary: Denies: urgency, dysuria, frequency Musculoskeletal: Denies: back pain, neck pain Integumentary: Denies: rash Neurological: Denies: headache Psychiatric: Reports: anxiety Endocrine: Denies: fatigue Past Medical History - Past Medical History Attestation: Yes The following information was validated with the patient. 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 history: Reports: no PORTABLE FEED MILL OPERATOR history - Social History Smoking Status: Never smoker Smokeless Tobacco Status: No Alcohol use: Reports: none Drug use: Reports: none, other Physical Exam Vital Signs Temperature 98.2 F 04/14/17 13:40 Pulse Rate 94 04/14/17 13:40 Respiratory Rate 18 04/14/17 13:40 Blood Pressure 171/77 04/14/17 13:40 O2 Sat by Pulse Oximetry 97 04/14/17 13:40 Temperature 98.2 F 04/14/17 13:40 Pulse Rate 94 04/14/17 13:40 Respiratory Rate 18 04/14/17 13:40 Blood Pressure 171/77 04/14/17 13:40 O2 Sat by Pulse Oximetry 97 04/14/17 13:40 Oxygen Delivery Oxygen Delivery Room Air 61-year-old female who is alert and oriented 3 and in acute distress secondary to pain and discomfort in the left lower extremity. Extremity is erythematous and tender to palpation. Patient allows me to palpate without excruciating pain. I can palpate dorsal pedal pulse and the posterior tibial - General Limitations: no limitations General appearance: alert, in no apparent distress - Head Head exam: atraumatic, normocephalic, normal inspection - Eye Eye exam: Present: normal appearance, PERRL, EOMI - ENT ENT exam: normal exam, normal oropharynx, mucous membranes moist - Neck Neck exam: Present: normal inspection, full ROM, trachea midline - Chest Chest inspection: Present: normal inspection, symmetric chest wall rise. Absent : tenderness, rash - Respiratory Respiratory exam: Present: normal lung sounds bilaterally. Absent: respiratory distress, wheezes - Cardiovascular Cardiovascular exam: Present: regular rate, normal rhythm, normal heart sounds - Abdominal Exam Abdominal exam: Present: soft, Non-Tender. Absent: tenderness, distention, guarding, rebound, rigidity - Extremities Exam Extremities exam: Present: tenderness (Left lower extremity), pedal edema (Left lower extremities), calf tenderness (Left lower extremity) Course Vital Signs Temperature 98.2 F 04/14/17 13:40 Pulse Rate 94 04/14/17 13:40 Respiratory Rate 18 04/14/17 13:40 Blood Pressure 171/77 04/14/17 13:40 O2 Sat by Pulse Oximetry 97 04/14/17 13:40 Temperature 99.3 F 04/14/17 19:26 Pulse Rate 79 04/14/17 19:26 Respiratory Rate 18 04/14/17 19:26 Blood Pressure 104/65 04/14/17 19:26 O2 Sat by Pulse Oximetry 97 04/14/17 19:26 Oxygen Delivery Oxygen Delivery Room Air Extremity Problem, Nontraumati - MDM Narrative Medical decision making narrative: Patient presented with initial concerns for possible DVT secondary to acute onset of left lower extremity swelling and nonpitting edema which is painful to palpation. Patient is had palpable pulses dorsal pedal and posterior tibial and so I ordered a venous Doppler. Doppler came back negative for DVT. Patient 's leg pain worsens with increase pain the patient's calf muscle. Concerns shifted to possible cellulitis/compartment syndrome as well as arterial blockage. LAMAR was accomplished and is negative for arterial blockage, Dr. Whalen of orthopedics was consulted and came to the ED and tested compartment pressures in the legs which do not show evidence of compartment syndrome. He recommended icing the extremity to reduce pain as well as elevating the extremity. This was accomplished. Patient started to have some relief after elevation along with multiple doses of Dilaudid for pain. Patient started on vancomycin and Zosyn to cover for possible cellulitis plan is to admit patient to the hospital for further IV antibiotics treatment and reevaluation. Patient accepts decision to admit Dr. Finley the hospitalist as accepted patient for admission. - Lab Data Lab results reviewed: Yes I reviewed the patient's lab results. Lab results narrative: Short CBC 04/14/17 Range/Units 14:46 WBC 11.7 H (4.3-11.1) K/mcL Hgb 12.7 (11.5-15.4) g/dL Hct 34.5 L (35.3-44.9) % Plt Count 123 L (140-400) K/mcL Neutrophils # 8.5 (1.6-8.9) K/mcL BMP 04/14/17 Range/Units 15:00 Sodium 130 L (136-145) mEq/L Potassium 3.8 (3.5-4.5) mEq/L Chloride 100 (98-109) mEq/L Carbon Dioxide 24 (19-29) mEq/L BUN 15 (7-20) mg/dL Creatinine 0.84 (0.57-1.11) mg/dL Glucose 307 H (70-99) mg/dL Calcium 8.7 (8.6-10.8) mg/dL Result diagrams: 04/14/17 14:46 04/14/17 15:00 Lab Results 04/14/17 04/14/17 04/14/17 Range/Units 14:23 14:23 14:46 WBC 11.7 H (4.3-11.1) K/mcL RBC 3.99 (3.82-4.97) M/mcL Hgb 12.7 (11.5-15.4) g/dL Hct 34.5 L (35.3-44.9) % MCV 86.5 (83.0-100.0) fL MCH 31.8 (28.0-33.3) pg MCHC 36.8 H (31.6-35.5) g/dL RDW 12.9 (11.5-14.5) % Plt Count 123 L (140-400) K/mcL MPV 9.6 (9.4-12.4) fL Immature Gran % 0.8 (0-4) % Seg Neutrophils % 72.5 % Lymphocytes % 15.8 % Monocytes % 9.1 % Eosinophils % 1.6 % Basophils % 0.2 % Neutrophils # 8.5 (1.6-8.9) K/mcL Lymphocytes # 1.9 (0.6-4.6) K/mcL Monocytes # 1.1 (0.0-1.3) K/mcL Eosinophils # 0.2 (0.0-0.6) K/mcL Basophils # 0.0 (0.0-0.2) K/mcL Immature Plt Fraction 3.0 (1.1-6.1) % PT 11.0 (9.4-12.1) Seconds INR 1.0 Sodium (136-145) mEq/L Potassium (3.5-4.5) mEq/L Chloride (98-109) mEq/L Carbon Dioxide (19-29) mEq/L BUN (7-20) mg/dL Creatinine (0.57-1.11) mg/dL Est GFR ( Amer) (> 60) Est GFR (Non-Af Amer) (> 60) BUN/Creatinine Ratio (6-26) Glucose (70-99) mg/dL POC Glucose (58-89) Calculated Osmolality (280-300) Calcium (8.6-10.8) mg/dL Specimen Rejected Clotted 04/14/17 04/14/17 Range/Units 15:00 20:43 WBC (4.3-11.1) K/mcL RBC (3.82-4.97) M/mcL Hgb (11.5-15.4) g/dL Hct (35.3-44.9) % MCV (83.0-100.0) fL MCH (28.0-33.3) pg MCHC (31.6-35.5) g/dL RDW (11.5-14.5) % Plt Count (140-400) K/mcL MPV (9.4-12.4) fL Immature Gran % (0-4) % Seg Neutrophils % % Lymphocytes % % Monocytes % % Eosinophils % % Basophils % % Neutrophils # (1.6-8.9) K/mcL Lymphocytes # (0.6-4.6) K/mcL Monocytes # (0.0-1.3) K/mcL Eosinophils # (0.0-0.6) K/mcL Basophils # (0.0-0.2) K/mcL Immature Plt Fraction (1.1-6.1) % PT (9.4-12.1) Seconds INR Sodium 130 L (136-145) mEq/L Potassium 3.8 (3.5-4.5) mEq/L Chloride 100 (98-109) mEq/L Carbon Dioxide 24 (19-29) mEq/L BUN 15 (7-20) mg/dL Creatinine 0.84 (0.57-1.11) mg/dL Est GFR ( Amer) > 60 (> 60) Est GFR (Non-Af Amer) > 60 (> 60) BUN/Creatinine Ratio 18 (6-26) Glucose 307 H (70-99) mg/dL POC Glucose 385 H (58-89) Calculated Osmolality 282 (280-300) Calcium 8.7 (8.6-10.8) mg/dL Specimen Rejected - Radiology Data Radiology results reviewed: Yes I reviewed the patient's radiology results. Attestation Statement - Attestation Attestation: I, Delfino Gamez, examined this patient and my medical decision-making was reviewed with the CLINICAL SPECIALIST/PA/Advanced Practice Nurse/Resident Physician. I agree with the documented findings, disposition and treatment plan as described except to the extent set forth below. 61-year-old female presents to emergency Department with concerns of left lower extremity pain. Patient states symptoms started within the past 2 days and have progressively worsened. Patient is now unable to ambulate without severe pain. Patient denies recent trauma or other injury to the left lower extremity. Patient denies fever, chills, nausea, vomiting, diarrhea, chest pain , palpitations, significant rash. This is never happened to the patient before. Patient denies IV drug use and denies having persistent pressure on the leg over any period of time. Patient had tenderness to palpation of the left calf with obvious swelling of the left lower extremity. Venous ultrasound was ordered to rule out DVT secondary to clinical presentation and timeline. Ultrasound was negative for DVT. LAMAR and arterial study was negative for decreased arterial flow. Orthopedics was consulted, Dr. Whalen, who evaluated the patient in the emergency department and performed Donte evaluation and rule out compartment syndrome. Patient was started on IV antibiotics and was admitted to the hospital for further care and evaluation.
[2017-04-14] MEDS ORDERED: Lidocaine OINT 35.44 GM TUBE TP PRN (20:56)
[2017-04-14] MEDS ORDERED: Acetaminophen 325 MG TABLET PO PRN (21:00)
[2017-04-14] MEDS ORDERED: *HR* Promethazine 25 MG/ML VIAL IVP PRN (21:00)
[2017-04-14] MEDS ORDERED: Naloxone 0.4 MG/ML INJ IVP PRN (21:00)
[2017-04-14] MEDS ORDERED: Dextrose Gel 15 GM PO PRN ×2 (21:03)
[2017-04-14] MEDS ORDERED: *HR* Dextrose 50 % in Water (Syg) 50 ML SYRINGE IVP PRN (21:03)
[2017-04-14] MEDS ORDERED: D5% in Water 1,000 ML IVC PRN (21:03)
--- NOTE | 2017-04-14 21:09 | Internal Med History&Physical ---
Date of Encounter: 04/14/17 Time of Encounter: 20:45 Assessment and Plan (1) Cellulitis of left lower extremity Current visit: Yes Status: Acute Acute left lower extremity cellulitis - unclear etiology Continue empiric IV Vancomycin, IV fluids Cultures - pending Ultrasound Doppler - negative for DVT Orthopedics consult Labs in a.m., intake output, monitor closely (2) Type 2 diabetes mellitus Current visit: Yes Status: Chronic Type 2 diabetes mellitus, insulin-dependent, hyperglycemia Continue insulin sliding scale, glucose checks, continue Levemir Qualifiers: Diabetes mellitus complication status: without complication Diabetes mellitus retirement insulin use: without retirement use Qualified Code(s): E11.9 - Type 2 diabetes mellitus without complications (3) COPD (chronic obstructive pulmonary disease) Current visit: Yes Status: Chronic COPD, stable - not in exacerbation Continue home dose of Albuterol as needed, O2 via [place] Qualifiers: COPD type: unspecified COPD Qualified Code(s): J44.9 - Chronic obstructive pulmonary disease, unspecified (4) Essential hypertension Current visit: Yes Status: Acute Essential hypertension, controlled, monitor Continue home dose of Lisinopril (5) DVT prophylaxis Current visit: Yes Status: Acute Heparin subcutaneous Internal Medicine - H&P: HPI Chief complaint: Left lower leg pain and swelling Admitted From: Emergency Dept Plans for Post Hospital Care: Home History of present illness: Ms. Casper is a 61 year old female with past medical history of arthritis, COPD, diabetes, cirrhosis, hepatitis, hypertension and depression. Patient presents to the ED with complaints of left lower extremity pain and swelling. Examined in the room. Patient is awake and alert. Not in any distress. Able to provide all history. No family members at bedside. Patient states she developed sudden onset left lower extremity pain and swelling about 2-3 days ago. Symptoms gradually worsened. Edema is also worsening. No history of injury or insect bite. Describes the pain as sharp and burning area and rates it 8/10. Symptoms are worse with weightbearing. No alleviating factors. Denies chest pain or shortness of breath or palpitations. No abdominal pain or vomiting or fever. No other associated symptoms. No other acute complaints. Initial workup in the ED is negative. Ultrasound Doppler of left lower extremity is negative for DVT. Orthopedics was consulted from ED. Patient does not have evidence of compartment syndrome. She is being admitted for left lower leg cellulitis. We will continue IV antibiotics at this time. Patient has been explained about her condition and plan of care in detail. She understood and agreed. No unanswered questions. CODE STATUS full code. Past Med Surg Social Fam HX - Past Medical History Medical history: arthritis, cirrhosis, COPD, diabetes, hepatitis, hypertension, other Psychiatric history: no psych history, depression - Past Surgical History Surgical History: hip replacement (bilaterally), orthopedic, other (bilateral shoulder surgery (spurs-Lt, rotator cuff repair-Rt), Lt knee sx-spurs, tubal ligation), other - Social History Smoking Status: Never smoker Smokeless Tobacco Status: No Alcohol use: none Drug use: none, other - Family History Father Hx Family Cardiac Disorders: Yes Hx Family Endocrine Disorder: Yes (DM) Mother Living Status: Age at : 57 Cause of : PN Internal Medicine - H&P: Meds Albuterol Neb [Proventil Neb] 2.5 mg IH Q6H PRN 11/11/16 [History] Albuterol Sulfate [Albuterol Inhaler] 2 puff IH Q6HR PRN 11/11/16 [History] Ibuprofen [Motrin] 200 - 400 mg PO Q6HR PRN 11/11/16 [History] Insulin Glargine [Lantus] 30 unit SQ QAM 11/11/16 [History] Metformin HCl [Glucophage] 1,000 mg PO BID 11/11/16 [History] Polyethylene Glycol 3350 [Purelax] 17 gm PO DAILY PRN 11/11/16 [History] Chlorthalidone [Chlorthalidone] 25 mg PO DAILY 04/14/17 [History] Cyclobenzaprine [Flexeril] 10 mg PO HS 04/14/17 [History] Docusate [Colace] 100 mg PO TID 04/14/17 [History] Gabapentin [Neurontin] 300 mg PO TID 04/14/17 [History] Lidocaine 1 appl TP QID PRN 04/14/17 [History] Lisinopril [Zestril] 40 mg PO DAILY 04/14/17 [History] 3 Allergy/AdvReac Type Severity Reaction Status Date / Time acetaminophen Allergy Gastrointestinal Verified 04/14/17 14:08 Upset latex Allergy Hives Verified 04/14/17 14:08 propoxyphene [From Darvon] Allergy Hives Verified 04/14/17 14:08 ondansetron AdvReac Vomiting Verified 04/14/17 14:08 [From Zofran (as hydrochloride)] All Systems PM: A 10-system review of systems was performed and is negative for pertinent findings except as documented above in the HPI. - Constitutional Constitutional: fatigue, no fever(s), no weakness - EENT Eyes: no blurry vision - Cardiovascular Cardiovascular ROS IM: no chest pain, no diaphoresis, no dyspnea, no dyspnea on exertion, no edema, no orthopnea, no palpitations, no syncope - Respiratory Respiratory: no cough, no dyspnea, no hemoptysis, no dyspnea on exertion, no wheezing, no chest congestion - Gastrointestinal Gastrointestinal: no abdominal pain, no cramping, no diarrhea, no hematemesis, no hematochezia, no nausea, no vomiting - Genitourinary Genitourinary: no dysuria - Musculoskeletal Additional comments: Left shoulder pain and swelling - Neurological Neurological ROS: no abnormal gait, no convulsions, no dizziness, no numbness, no tingling, no weakness - Constitutional Vitals: Temp Pulse Resp BP Pulse Ox 99.3 F 79 18 104/65 97 04/14/17 19:26 04/14/17 19:26 04/14/17 19:26 04/14/17 19:26 04/14/17 19:26 General appearance: Present: cooperative, A&O X 3, pleasant, no acute distress, answers questions appropriately - Head Head exam: Present: atraumatic - Eye Eye exam: Present: EOMI - ENT ENT exam: Present: mucous membranes dry - Respiratory Respiratory exam: Present: CTAB. Absent: rales, respiratory distress, rhonchi, wheezes, tachypnea - Cardiovascular Cardiovascular exam: Present: RRR, +S1, +S2 - GI/Abdominal GI/Abdominal exam: Present: soft. Absent: distended, firm, guarding, tenderness - Extremities Exam Extremities exam: Present: calf tenderness (Left lower leg calf tenderness), pedal edema (Bilateral lower leg edema worse on the left side), radial pulses palpable and symmetrical. Absent: cyanotic Additional comments: Erythema over left lower leg. Warm to touch - Neurological Exam Neurological exam: Present: alert, oriented X3, no focal deficits. Absent: facial droop, speech deficit Internal Med - H&P Results - Labs CBC & Chem 7: 04/14/17 14:46 04/14/17 15:00
--- NOTE | 2017-04-14 21:30 | Orthopedic Consult Note ---
Date of Encounter: 04/14/17 Time of Encounter: 21:23 Assessment and Plan (1) Cellulitis of left lower extremity Current Visit: Yes Status: Demarco Smith has lower extremity pain and swelling without trauma. Dopplers were negative for DVT. Clinically she has compressible compartments and minimal pain with passive dorsiflexion. Compartment pressures were confirmed with [facility] evaluation and do not show compartment syndrome. She will be admitted to the hospitalist service for antibiotics for treatment of cellulitis. No plans for surgical intervention. History of Present Illness Chief complaint: L leg pain HPI: Ms. Casper is a 61 year old female with a 2 day history of left leg pain and swelling. Pain with ambulation and with palpation. Had previous foot surgery in November and some some residual numbness, but no new distal numbness. Denies any subjective F/C/NS. Past Med Surg Social Fam HX - Past Medical History Medical history: arthritis, cirrhosis, COPD, diabetes, hepatitis, hypertension, other Psychiatric history: no psych history, depression - Past Surgical History Surgical History: hip replacement (bilaterally), orthopedic, other (bilateral shoulder surgery (spurs-Lt, rotator cuff repair-Rt), Lt knee sx-spurs, tubal ligation), other - Social History Smoking Status: Never smoker Smokeless Tobacco Status: No Alcohol use: none Drug use: none, other - Family History Father Living Status: Age at : 68 Cause of : heart attack Hx Family Cardiac Disorders: Yes Hx Family Endocrine Disorder: Yes (DM) Mother Living Status: Age at : 57 Cause of : PN Medications and Allergies Albuterol Neb [Proventil Neb] 2.5 mg IH Q6H PRN 11/11/16 [History] Albuterol Sulfate [Albuterol Inhaler] 2 puff IH Q6HR PRN 11/11/16 [History] Ibuprofen [Motrin] 200 - 400 mg PO Q6HR PRN 11/11/16 [History] Insulin Glargine [Lantus] 30 unit SQ QAM 11/11/16 [History] Metformin HCl [Glucophage] 1,000 mg PO BID 11/11/16 [History] Polyethylene Glycol 3350 [Purelax] 17 gm PO DAILY PRN 11/11/16 [History] Chlorthalidone [Chlorthalidone] 25 mg PO DAILY 04/14/17 [History] Cyclobenzaprine [Flexeril] 10 mg PO HS 04/14/17 [History] Docusate [Colace] 100 mg PO TID 04/14/17 [History] Gabapentin [Neurontin] 300 mg PO TID 04/14/17 [History] Lidocaine 1 appl TP QID PRN 04/14/17 [History] Lisinopril [Zestril] 40 mg PO DAILY 04/14/17 [History] 3 Allergy/AdvReac Type Severity Reaction Status Date / Time acetaminophen Allergy Gastrointestinal Verified 04/14/17 14:08 Upset latex Allergy Hives Verified 04/14/17 14:08 propoxyphene [From Darvon] Allergy Hives Verified 04/14/17 14:08 ondansetron AdvReac Vomiting Verified 04/14/17 14:08 [From Zofran (as hydrochloride)] All Systems Reviewed: A 10-system review of systems was performed and is negative for pertinent findings except as documented above in the HPI. Physical Exam - Constitutional Vitals: Temp Pulse Resp BP Pulse Ox 99.3 F 79 18 104/65 97 04/14/17 19:26 04/14/17 19:26 04/14/17 19:26 04/14/17 19:26 04/14/17 19:26 General appearance IM: A&O X 3 Exam: Constitutional -Vitals reviewed -The patient is well developed and well nourished. Psychiatric -The patient is fully alert and oriented x 3. Respiratory: -Respiratory effort normal Abdomen: -Soft abdomen -Non tender -Non distended: Left upper extremity: -No deformities. The overlying skin is intact. No obvious signs of acute trauma. -No tenderness to palpation throughout. -No significant pain with passive motion of the shoulder, elbow, wrist, and fingers within the limits of the bed. -Able to make an "OK" sign, cross the index and long fingers, and extend the thumb. -Sensation grossly intact to light touch throughout the median, radial, and ulnar distributions. -Radial pulse is present; Fingers have good capillary refill. Right upper extremity: -No deformities. The overlying skin is intact. No obvious signs of acute trauma. -No tenderness to palpation throughout. -No significant pain with passive motion of the shoulder, elbow, wrist, and fingers within the limits of the bed. -Able to make an "OK" sign, cross the index and long fingers, and extend the thumb. -Sensation grossly intact to light touch throughout the median, radial, and ulnar distributions. -Radial pulse is present; Fingers have good capillary refill. Left lower extremity: -No deformities. The overlying skin is intact. Posterior erythema. No obvious signs of acute trauma. -TTP along calf, worse posteriorly -Swelling of the calf, compartments compressible -No pain with axial loading of the thigh. -No pain with passive DF of toes, uncomfortable with DF of ankle -Sensation is grossly intact to light touch throughout the sural, saphenous, superficial peroneal, and deep peroneal distributions. -Toes have good capillary refill. Right lower extremity: -No deformities. The overlying skin is intact. No obvious signs of acute trauma. -No tenderness to palpation throughout. -No pain with passive motion of the hip, knee, ankle, and toes within the limits of the bed. -Able to dorsiflex and plantarflex the ankle and toes. -Sensation is grossly intact to light touch throughout the sural, saphenous, superficial peroneal, and deep peroneal distributions. -Toes have good capillary refill. Results - Labs Result Diagrams: 04/14/17 14:46 04/14/17 15:00 Labs: Abnormal lab results WBC 11.7 K/mcL (4.3-11.1) H 04/14/17 14:46 Hct 34.5 % (35.3-44.9) L 04/14/17 14:46 MCHC 36.8 g/dL (31.6-35.5) H 04/14/17 14:46 Plt Count 123 K/mcL (140-400) L 04/14/17 14:46 Sodium 130 mEq/L (136-145) L 04/14/17 15:00 Glucose 307 mg/dL (70-99) H 04/14/17 15:00 POC Glucose 385 (58-89) H 04/14/17 20:43 Donte: Superficial posterior compartment - 18 mmHG Anterior compartment - 20 mmHG Consult Discharge Plan - Plan Referrals: NONE,PCP [Primary Care Provider] -
[2017-04-14] MEDS ORDERED: Albuterol 2.5 MG/3 ML NEBULIZER IH PRN (22:00)
[2017-04-14] MEDS: *HR* Morphine 2 MG/ML SYRINGE IVP PRN (22:36)
[2017-04-14] MEDS: Aspirin 81 MG TAB.CHEW PO SCH (22:37)
[2017-04-14] MEDS: Famotidine 20 MG TABLET PO SCH (22:37)
[2017-04-14] MEDS: *HR* Heparin 5,000 UNIT/ML VIAL SQ SCH (22:38)
[2017-04-14] MEDS: Insulin LISPRO 300 UNITS/3 ML VIAL SQ SCH (23:28)
[2017-04-14] MEDS: 0.9 % Sodium Chloride 1,000 ML IVC SCH (23:47)
[2017-04-15] MEDS: *HR* Morphine 2 MG/ML SYRINGE IVP PRN ×4 (05:11→20:30)
[2017-04-15] MEDS ORDERED: Vancomycin 1,000 MG in D5% in Water 250 ML IVPB SCH (06:00)
[2017-04-15] MEDS: Insulin LISPRO 300 UNITS/3 ML VIAL SQ SCH ×3 (06:03→17:56)
[2017-04-15] MEDS: Vancomycin 1,250 MG in D5% in Water 250 ML IVPB SCH ×2 (06:04→18:44)
[2017-04-15] MEDS: *HR* Heparin 5,000 UNIT/ML VIAL SQ SCH ×2 (06:04→17:56)
[2017-04-15 07:05] LABS: Basophils % 0.3 %; Eosinophils # 0.3 K/mcL (0.0-0.6); Eosinophils % 3.1 %; Hematocrit 33.1 % (35.3-44.9); Hemoglobin 12.2 g/dL (11.5-15.4); Immature Granulocytes % 0.9 % (0-4); Lymphocytes # 2.4 K/mcL (0.6-4.6); Lymphocytes % 23.2 %; Mean Corpuscular HGB Conc 36.9 g/dL (31.6-35.5); Mean Corpuscular Hemoglobin 32.3 pg (28.0-33.3); Mean Corpuscular Volume 87.6 fL (83.0-100.0); Mean Platelet Volume 9.8 fL (9.4-12.4); Monocytes % 9.1 %; Neutrophils # 6.6 K/mcL (1.6-8.9); Platelet Count 116 K/mcL (140-400); Red Blood Count 3.78 M/mcL (3.82-4.97); Red Cell Distribution Width 13.2 % (11.5-14.5); Segmented Neutrophils % 63.4 %
[2017-04-15 07:11] LABS: BUN/Creatinine Ratio 20 (6-26); Blood Urea Nitrogen 17 mg/dL (7-20); Calcium 8.5 mg/dL (8.6-10.8); Carbon Dioxide 25 mEq/L (19-29); Chloride 100 mEq/L (98-109); Glucose 256 mg/dL (70-99); Magnesium 1.7 mg/dL (1.6-2.6); Osmolality,Calculated 286 (280-300); Potassium 3.4 mEq/L (3.5-4.5); Sodium 133 mEq/L (136-145); eGFR For African Americans > 60 (> 60); eGFR For Non-African Americans > 60 (> 60)
[2017-04-15 07:14] LABS: Chol/HDL Ratio 5.4 (0-4.9)
[2017-04-15 08:11] LABS: Hemoglobin A1C 7.3 %
[2017-04-15] MEDS: Famotidine 20 MG TABLET PO SCH ×2 (08:55→20:31)
[2017-04-15] MEDS: Aspirin 81 MG TAB.CHEW PO SCH (08:55)
[2017-04-15] MEDS: Lisinopril 20 MG TABLET PO SCH (08:55)
[2017-04-15] MEDS ORDERED: NON-FORMULARY MEDICATION 1 EACH EACH (Insulin Glargine [Lantus] 30 UNIT) SQ SCH (09:00)
[2017-04-15] MEDS: Insulin DETEMIR 100 UNIT/ML X5UNITS SQ SCH (09:03)
[2017-04-15] MEDS ORDERED: Piperacillin/Tazobactam 3.375 GM in 0.9 % Sodium Chloride Mini Bag 100 ML IVPB ONE (10:06)
--- NOTE | 2017-04-15 10:19 | Internal Med Progress Note ---
Date of Encounter: 04/15/17 Time of Encounter: 10:16 - Assessment and plan (1) Cellulitis of left lower extremity Current Visit: Yes Status: Acute Assessment and plan: Pain is not improving, orthopedic surgery was consulted, ruled out to compartment syndrome. I will add on Zosyn due to his deep tissue infection. We will check x-ray to rule out gas. And I also added on Percocets for pain control. She has negative DVT on admission. (2) Type 2 diabetes mellitus Current Visit: Yes Status: Chronic Assessment and plan: Continue insulin sliding scale, glucose checks, continue Levemir, A1C 7.3% Qualifiers: Diabetes mellitus complication status: with hyperglycemia Diabetes mellitus snf insulin use: with snf use Qualified Code(s): E11.65 - Type 2 diabetes mellitus with hyperglycemia; Z79.4 - medical terminologist (current) use of insulin; Z79.4 - residential (current) use of insulin; Z79.4 - medical terminologist ( current) use of insulin; Z79.4 - residential (current) use of insulin (3) COPD (chronic obstructive pulmonary disease) Current Visit: Yes Status: Chronic Assessment and plan: Stable on room air Qualifiers: COPD type: unspecified COPD Qualified Code(s): J44.9 - Chronic obstructive pulmonary disease, unspecified (4) DVT prophylaxis Current Visit: Yes Status: Acute Assessment and plan: Heparin subcutaneous (5) Essential hypertension Current Visit: Yes Status: Acute Assessment and plan: Continue home meds lisinopril - Time Spent With Patient Greater than 35 minutes - Subjective Interval history: Patient was ADMITTED for left lower extremity pain AND swelling which started 3 days ago. she had a negative DVT and was treated IV vancomycin. The patient states the pain is not improving, swelling is the same she rates the pain is 10 out of 10, unable to touch. Left leg posterior has some redness. She said IV morphine is not working we discussed to add on Percocets she agrees - Constitutional Vitals: Temp Pulse Resp BP Pulse Ox 98.8 F 70 14 91/58 97 04/15/17 07:05 04/15/17 07:05 04/15/17 07:05 04/15/17 07:05 04/15/17 07:05 CONSTITUTIONAL: patient appears as an age appropriate female in no acute distress. EYES Clear sclerae, bilateral pupils are equal, reactive to light. EMOI. RESPIRATORY: No accessory muscle use, bilateral clear to auscultation, no wheezing, no crackles/rales. CARDIOVASCULAR: Regular heart rate, normal S1 and S2, no murmurs GASTROINTESTINAL: bowel sounds present, soft, no tenderness. MUSCULOSKELETAL: Joints in normal range of motion, no clubbing, left leg edema, no cyanosis. Bilateral peripheral pulses 2+. NEUROLOGIC: CN II to XII are grossly intact, no focal neurological deficit. General appearance: Present: cooperative, A&O X 3, pleasant, no acute distress, answers questions appropriately Internal Medicine: Result - Labs CBC & Chem 7: 04/15/17 06:47 04/15/17 06:47 Labs: Short CBC 04/15/17 Range/Units 06:47 WBC 10.4 (4.3-11.1) K/mcL Hgb 12.2 (11.5-15.4) g/dL Hct 33.1 L (35.3-44.9) % Plt Count 116 L (140-400) K/mcL Neutrophils # 6.6 (1.6-8.9) K/mcL BMP 04/15/17 06:47 Sodium 133 L Potassium 3.4 L Chloride 100 Carbon Dioxide 25 BUN 17 Creatinine 0.86 Glucose 256 H Calcium 8.5 L - ABG Interpretation ABG results: PT/INR, D-dimer PT 11.0 Seconds (9.4-12.1) 04/14/17 14:23 Consult Discharge Plan - Plan Referrals: NONE,PCP [Primary Care Provider] -
[2017-04-15] MEDS: *HR* OxyCODONE/APAP 10/325 TABLET PO PRN (14:36)
[2017-04-15] MEDS: Nicotine 21 MG PATCH.TD24 TD SCH (14:36)
--- NOTE | 2017-04-15 15:07 | Orthopedics Progress Note ---
Date of Encounter: 04/15/17 Time of Encounter: 09:30 - Assessment and Plan (1) Cellulitis of left lower extremity Current Visit: Yes Status: Acute Subjective Interval history: S: Left leg pain, unchanged from last night. Pain worse with direct palpation. No increase in swelling. No new N/T. O: AFVSS GEN: AAOx3 LLE: Posterior erythema, TTP posterior calf Compartments compressible DNVI, palpable pulses No pain with passive extension of toes A/P: 61 yo F with left leg cellulitis -No plan for left leg surgery -Antibiotics per primary team -Aggressive ice and elevation Objective Vital signs: Vital Signs Temp Pulse Resp BP Pulse Ox 04/15/17 12:18 99.2 F 82 14 103/58 98 04/15/17 07:05 98.8 F 70 14 91/58 97 04/15/17 03:31 98.1 F 75 18 98/61 97 04/15/17 00:29 98.1 F 79 18 95/65 98 Intake and Output 04/14/17 04/15/17 04/15/17 23:59 07:59 15:59 Intake Total 120 / 120 360 / 360 Output Total 0 / 0 450 / 450 Balance 120 / 120 -90 / -90 Intake: Oral 120 / 120 360 / 360 Output: Urine 0 / 0 450 / 450 Other: Meal Lunch Percent of Meal Consumed 75% Blood Glucose* 350 - Labs CBC & BMP: 04/15/17 06:47 04/15/17 06:47 Labs: Abnormal lab results RBC 3.78 M/mcL (3.82-4.97) L 04/15/17 06:47 Hct 33.1 % (35.3-44.9) L 04/15/17 06:47 MCHC 36.9 g/dL (31.6-35.5) H 04/15/17 06:47 Plt Count 116 K/mcL (140-400) L 04/15/17 06:47 Sodium 133 mEq/L (136-145) L 04/15/17 06:47 Potassium 3.4 mEq/L (3.5-4.5) L 04/15/17 06:47 Glucose 256 mg/dL (70-99) H 04/15/17 06:47 POC Glucose 385 (58-89) H 04/14/17 20:43 Hemoglobin A1c 7.3 % (-5.6) H 04/15/17 06:47 Calcium 8.5 mg/dL (8.6-10.8) L 04/15/17 06:47 HDL Cholesterol 21 mg/dL (40-59) L 04/15/17 06:47 Cholesterol/HDL Ratio 5.4 (0-4.9) H 04/15/17 06:47 Consult Discharge Plan - Plan Referrals: NONE,PCP [Primary Care Provider] -
[2017-04-15] MEDS ORDERED: Piperacillin/Tazobactam 3.375 GM in 0.9 % Sodium Chloride Mini Bag 100 ML IVPB SCH (18:00)
[2017-04-16] MEDS: *HR* Morphine 2 MG/ML SYRINGE IVP PRN ×5 (00:43→21:04)
[2017-04-16] MEDS: Insulin LISPRO 300 UNITS/3 ML VIAL SQ SCH ×4 (00:55→17:37)
[2017-04-16] MEDS: *HR* OxyCODONE/APAP 10/325 TABLET PO PRN ×4 (02:35→22:51)
[2017-04-16] MEDS: 0.9 % Sodium Chloride 1,000 ML IVC SCH (06:04)
[2017-04-16] MEDS: *HR* Heparin 5,000 UNIT/ML VIAL SQ SCH ×2 (06:05→17:38)
[2017-04-16] MEDS: Vancomycin 1,250 MG in D5% in Water 250 ML IVPB SCH ×2 (06:12→17:41)
[2017-04-16] MEDS: Aspirin 81 MG TAB.CHEW PO SCH (07:34)
[2017-04-16] MEDS: Nicotine 21 MG PATCH.TD24 TD SCH (07:34)
[2017-04-16] MEDS: Famotidine 20 MG TABLET PO SCH ×2 (07:34→21:01)
[2017-04-16] MEDS: Lisinopril 20 MG TABLET PO SCH (07:34)
[2017-04-16 07:53] LABS: Basophils % 0.3 %; Eosinophils # 0.3 K/mcL (0.0-0.6); Eosinophils % 2.9 %; Hematocrit 32.8 % (35.3-44.9); Hemoglobin 11.9 g/dL (11.5-15.4); Immature Granulocytes % 0.6 % (0-4); Lymphocytes % 21.3 %; Mean Corpuscular HGB Conc 36.3 g/dL (31.6-35.5); Mean Corpuscular Hemoglobin 31.3 pg (28.0-33.3); Mean Corpuscular Volume 86.3 fL (83.0-100.0); Mean Platelet Volume 9.8 fL (9.4-12.4); Monocytes % 10.1 %; Neutrophils # 6.1 K/mcL (1.6-8.9); Platelet Count 136 K/mcL (140-400); Red Cell Distribution Width 12.8 % (11.5-14.5); Segmented Neutrophils % 64.8 %
--- NOTE | 2017-04-16 08:04 | Orthopedics Progress Note ---
Date of Encounter: 04/16/17 Time of Encounter: 08:03 - Assessment and Plan (1) Cellulitis of left lower extremity Current Visit: Yes Status: Acute Subjective Interval history: S: Left leg pain with direct palpation. No increase in swelling. No new N/T. O: AFVSS GEN: AAOx3 LLE: Posterior erythema, TTP posterior calf Compartments compressible DNVI, palpable pulses No pain with passive extension of toes A/P: 61 yo F with left leg cellulitis -No plan for left leg surgery -Antibiotics per primary team -Aggressive ice and elevation -Will s/o Objective Vital signs: Vital Signs Temp Pulse Resp BP Pulse Ox 04/16/17 07:26 98.5 F 72 14 130/69 97 04/16/17 01:12 98.6 F 74 16 136/82 98 04/15/17 20:34 98.7 F 80 16 109/70 92 04/15/17 20:32 92 04/15/17 16:07 99.2 F 82 15 99/55 97 04/15/17 12:18 99.2 F 82 14 103/58 98 Intake and Output 04/15/17 04/16/17 04/16/17 23:59 07:59 15:59 Intake Total 1740 / 1740 0 / 0 Output Total 0 / 0 200 / 200 Balance 1740 / 1740 -200 / -200 Intake: IV Fluids 1500 / 1500 0.9 % Sodium Chloride 1,000 ML 1000 / 1000 @ 50 mls/hr IVC .Q20H FABIANO Rx#: [id number] Vancocin 1,250 MG In Dextrose 5 500 / 500 % 250 ML @ 166.67 mls/hr IVPB Q12H FABIANO Rx#:[id number] Oral 240 / 240 0 / 0 Output: Urine 0 / 0 200 / 200 Other: Meal Dinner Percent of Meal Consumed 100% Blood Glucose* 352 144 - Labs CBC & BMP: 04/15/17 06:47 04/15/17 06:47 Labs: Abnormal lab results RBC 3.78 M/mcL (3.82-4.97) L 04/15/17 06:47 Hct 33.1 % (35.3-44.9) L 04/15/17 06:47 MCHC 36.9 g/dL (31.6-35.5) H 04/15/17 06:47 Plt Count 116 K/mcL (140-400) L 04/15/17 06:47 Sodium 133 mEq/L (136-145) L 04/15/17 06:47 Potassium 3.4 mEq/L (3.5-4.5) L 04/15/17 06:47 Glucose 256 mg/dL (70-99) H 04/15/17 06:47 POC Glucose 144 (58-89) H 04/16/17 06:28 Hemoglobin A1c 7.3 % (-5.6) H 04/15/17 06:47 Calcium 8.5 mg/dL (8.6-10.8) L 04/15/17 06:47 HDL Cholesterol 21 mg/dL (40-59) L 04/15/17 06:47 Cholesterol/HDL Ratio 5.4 (0-4.9) H 04/15/17 06:47 Consult Discharge Plan - Plan Referrals: NONE,PCP [Primary Care Provider] -
[2017-04-16 08:07] LABS: BUN/Creatinine Ratio 17 (6-26); Blood Urea Nitrogen 14 mg/dL (7-20); Calcium 8.5 mg/dL (8.6-10.8); Carbon Dioxide 21 mEq/L (19-29); Chloride 102 mEq/L (98-109); Glucose 123 mg/dL (70-99); Osmolality,Calculated 280 (280-300); Potassium 3.3 mEq/L (3.5-4.5); Sodium 134 mEq/L (136-145); eGFR For African Americans > 60 (> 60); eGFR For Non-African Americans > 60 (> 60)
[2017-04-16] MEDS: Insulin DETEMIR 100 UNIT/ML X5UNITS SQ SCH ×2 (09:30→21:02)
--- NOTE | 2017-04-16 16:41 | Internal Med Progress Note ---
Date of Encounter: 04/16/17 Time of Encounter: 16:39 - Assessment and plan (1) Cellulitis of left lower extremity Current Visit: Yes Status: Acute Assessment and plan: Pain and swelling, improved with vancomycin and zosyn. She has negative DVT on admission. Continue IV vancomycin and Zosyn for few more days (2) Type 2 diabetes mellitus Current Visit: Yes Status: Chronic Assessment and plan: Continue insulin sliding scale, glucose checks, increased Levemir, A1C 7.3%, add home metformin Qualifiers: Diabetes mellitus complication status: with hyperglycemia Diabetes mellitus shelter insulin use: with emt intermediate use Qualified Code(s): E11.65 - Type 2 diabetes mellitus with hyperglycemia; Z79.4 - terminal system operator (current) use of insulin; Z79.4 - terminal system operator (current) use of insulin; Z79.4 - custodial ( current) use of insulin; Z79.4 - terminal system operator (current) use of insulin (3) COPD (chronic obstructive pulmonary disease) Current Visit: Yes Status: Chronic Assessment and plan: Stable on room air Qualifiers: COPD type: unspecified COPD Qualified Code(s): J44.9 - Chronic obstructive pulmonary disease, unspecified (4) DVT prophylaxis Current Visit: Yes Status: Acute Assessment and plan: Heparin subcutaneous (5) Essential hypertension Current Visit: Yes Status: Acute Assessment and plan: Continue home meds lisinopril - Time Spent With Patient 25 - 35 minutes - Subjective Interval history: Patient was ADMITTED for left lower extremity pain AND swelling which started 3 days ago. she had a negative DVT and was treated IV vancomycinand zosyn, leg swelling and redness improved tday. discussed need few more days IV ATB - Constitutional Vitals: Temp Pulse Resp BP Pulse Ox 98.4 F 87 14 129/71 100 04/16/17 13:53 04/16/17 13:53 04/16/17 13:53 04/16/17 13:53 04/16/17 13:53 CONSTITUTIONAL: patient appears as an age appropriate female in no acute distress. EYES Clear sclerae, bilateral pupils are equal, reactive to light. EMOI. RESPIRATORY: No accessory muscle use, bilateral clear to auscultation, no wheezing, no crackles/rales. CARDIOVASCULAR: Regular heart rate, normal S1 and S2, no murmurs GASTROINTESTINAL: bowel sounds present, soft, no tenderness. MUSCULOSKELETAL: Joints in normal range of motion, no clubbing, no edema, no cyanosis. Bilateral peripheral pulses 2+. NEUROLOGIC: CN II to XII are grossly intact, no focal neurological deficit. General appearance: Present: cooperative, A&O X 3, pleasant, no acute distress, answers questions appropriately Internal Medicine: Result - Labs CBC & Chem 7: 04/16/17 06:43 04/16/17 06:43 Labs: Short CBC 04/16/17 Range/Units 06:43 WBC 9.4 (4.3-11.1) K/mcL Hgb 11.9 (11.5-15.4) g/dL Hct 32.8 L (35.3-44.9) % Plt Count 136 L (140-400) K/mcL Neutrophils # 6.1 (1.6-8.9) K/mcL BMP 04/16/17 06:43 Sodium 134 L Potassium 3.3 L Chloride 102 Carbon Dioxide 21 BUN 14 Creatinine 0.83 Glucose 123 H Calcium 8.5 L - ABG Interpretation ABG results: PT/INR, D-dimer PT 11.0 Seconds (9.4-12.1) 04/14/17 14:23 Consult Discharge Plan - Plan Referrals: NONE,PCP [Primary Care Provider] -
[2017-04-16] MEDS: *HR* Metformin 850 MG TABLET PO SCH (17:38)
[2017-04-17] MEDS: *HR* Morphine 2 MG/ML SYRINGE IVP PRN ×5 (00:57→21:36)
[2017-04-17] MEDS: *HR* OxyCODONE/APAP 10/325 TABLET PO PRN ×4 (03:47→20:17)
[2017-04-17 05:44] LABS: Basophils % 0.3 %; Eosinophils # 0.3 K/mcL (0.0-0.6); Eosinophils % 4.5 %; Hematocrit 29.9 % (35.3-44.9); Hemoglobin 10.9 g/dL (11.5-15.4); Immature Granulocytes % 0.6 % (0-4); Lymphocytes # 1.5 K/mcL (0.6-4.6); Lymphocytes % 24.8 %; Mean Corpuscular HGB Conc 36.5 g/dL (31.6-35.5); Mean Corpuscular Hemoglobin 31.5 pg (28.0-33.3); Mean Corpuscular Volume 86.4 fL (83.0-100.0); Mean Platelet Volume 9.2 fL (9.4-12.4); Monocytes # 0.7 K/mcL (0.0-1.3); Monocytes % 10.8 %; Neutrophils # 3.7 K/mcL (1.6-8.9); Platelet Count 123 K/mcL (140-400); Red Blood Count 3.46 M/mcL (3.82-4.97); Red Cell Distribution Width 12.8 % (11.5-14.5)
[2017-04-17] MEDS: *HR* Heparin 5,000 UNIT/ML VIAL SQ SCH ×2 (05:56→17:36)
[2017-04-17 06:03] LABS: BUN/Creatinine Ratio 18 (6-26); Blood Urea Nitrogen 15 mg/dL (7-20); Calcium 9.2 mg/dL (8.6-10.8); Carbon Dioxide 27 mEq/L (19-29); Chloride 101 mEq/L (98-109); Glucose 226 mg/dL (70-99); Magnesium 1.7 mg/dL (1.6-2.6); Osmolality,Calculated 282 (280-300); Potassium 3.8 mEq/L (3.5-4.5); Sodium 132 mEq/L (136-145); eGFR For African Americans > 60 (> 60); eGFR For Non-African Americans > 60 (> 60)
[2017-04-17] MEDS ORDERED: Vancomycin 1,000 MG in D5% in Water 250 ML IVPB SCH (08:00)
[2017-04-17] MEDS: Famotidine 20 MG TABLET PO SCH ×2 (08:50→21:35)
[2017-04-17] MEDS: *HR* Metformin 850 MG TABLET PO SCH (08:52)
[2017-04-17] MEDS: Lisinopril 20 MG TABLET PO SCH (08:53)
[2017-04-17] MEDS: Aspirin 81 MG TAB.CHEW PO SCH (08:53)
[2017-04-17] MEDS: Insulin LISPRO 300 UNITS/3 ML VIAL SQ SCH ×3 (08:54→17:30)
[2017-04-17] MEDS: Nicotine 21 MG PATCH.TD24 TD SCH (09:03)
[2017-04-17] MEDS ORDERED: Aminoglycoside Consult 1 EACH MC ONE (09:04)
[2017-04-17] MEDS: Insulin DETEMIR 100 UNIT/ML X5UNITS SQ SCH ×2 (09:05→21:36)
--- NOTE | 2017-04-17 10:11 | Internal Med Progress Note ---
<Francisco Marin - Last Filed: 04/17/17 10:27> Date of Encounter: 04/17/17 Time of Encounter: 09:30 - Assessment and plan (1) Cellulitis of left lower extremity Current Visit: Yes Status: Acute Assessment and plan: Patient presented with pain, redness, swelling in her LLE; has since slightly improved. Unable to ambulate or bear weight on her left leg. Painful to the touch. Ultrasound Doppler was negative for DVT. Blood cultures drawn on 04/15/17: Negative IV antibiotics: -Vancomycin 1000 mg IV Q12 (started on 04/15/17; day 3). Dose reduced from 1250 mg to 1000 mg on 04/17/17. -Zosyn 3.375 IV every 8 started on 04/15/17; currently being held (2) Type 2 diabetes mellitus Current Visit: Yes Status: Chronic Assessment and plan: A1C 7.3%. Glucose this morning was 226. -Continue insulin sliding scale -Glucose checks -Diabetic diet -Home medication: Metformin 850 mg PO BID WM Qualifiers: Diabetes mellitus complication status: with hyperglycemia Diabetes mellitus usp insulin use: with intermodal dispatcher use Qualified Code(s): E11.65 - Type 2 diabetes mellitus with hyperglycemia; Z79.4 - intermediate accountant (current) use of insulin; Z79.4 - [facility] (current) use of insulin; Z79.4 - intermediate accountant ( current) use of insulin; Z79.4 - intermediate accountant (current) use of insulin (3) COPD (chronic obstructive pulmonary disease) Current Visit: Yes Status: Chronic Assessment and plan: Patient is currently not in respiratory distress. -Stable on room air; O2 saturations morning was 96 Qualifiers: COPD type: unspecified COPD Qualified Code(s): J44.9 - Chronic obstructive pulmonary disease, unspecified (4) Essential hypertension Current Visit: Yes Status: Acute Assessment and plan: Continue home medications: -Chlorthalidone 25 mg PO daily -Lisinopril 40 mg PO daily -Simvastatin 20 mg PO at bedtime (5) DVT prophylaxis Current Visit: Yes Status: Acute Assessment and plan: Heparin 5000 SQ 12 - Subjective Interval history: Patient was seen and examined at bedside this morning. Patient reports that her leg swelling has improved since admission. She still has significant pain, especially in the popliteal region and in the back of her left calf. She describes them as "charley horses" in her legs. She is unable to bear any weight on her leg. Leg still appears swollen. According to patient, redness has improved. She states that when she initially presented, the redness in her leg extended approximately 3 inches above the popliteal area. Redness is currently confined to the lower portion of her leg. Still swollen and painful to the touch. She denies any pain anywhere else. No other complaints at this time. - Constitutional Vitals: Temp Pulse Resp BP Pulse Ox 98.1 F 69 18 101/60 96 04/17/17 07:17 04/17/17 07:17 04/17/17 07:17 04/17/17 07:17 04/17/17 07:17 General appearance: Present: cooperative, mild distress, A&O X 3, pleasant, answers questions appropriately - Head Head exam: Present: atraumatic, normocephalic - Eye Eye exam: Present: PERRL, conjuntiva pink, sclera anicteric Pupils: Present: PERRL - Neck Neck exam general surgery: Present: supple, trachea midline. Absent: lymphadenopathy - Respiratory Respiratory exam: Present: CTAB. Absent: accessory muscle use, rales, rhonchi, wheezes - Cardiovascular Cardiovascular exam: Present: RRR, +S1, +S2. Absent: diastolic murmur, gallop, rubs, systolic murmur - Extremities Exam Extremities exam: Present: pedal edema, tenderness, warm - Expanded Lower Extremities Exam Lower Leg exam: Present: erythema, swelling, tenderness - Skin Skin exam: Present: dry, intact Internal Medicine: Result - Labs CBC & Chem 7: 04/17/17 05:23 04/17/17 05:23 Labs: Short CBC 04/17/17 Range/Units 05:23 WBC 6.2 (4.3-11.1) K/mcL Hgb 10.9 L (11.5-15.4) g/dL Hct 29.9 L (35.3-44.9) % Plt Count 123 L (140-400) K/mcL Neutrophils # 3.7 (1.6-8.9) K/mcL BMP 04/17/17 05:23 Sodium 132 L Potassium 3.8 Chloride 101 Carbon Dioxide 27 BUN 15 Creatinine 0.82 Glucose 226 H Calcium 9.2 - ABG Interpretation ABG results: PT/INR, D-dimer PT 11.0 Seconds (9.4-12.1) 04/14/17 14:23 Consult Discharge Plan - Plan Referrals: NONE,PCP [Primary Care Provider] - <Manoj Sharma H - Last Filed: 04/17/17 10:53> Date of Encounter: 04/17/17 - Constitutional Vitals: Temp Pulse Resp BP Pulse Ox 98.7 F 96 16 141/80 100 04/17/17 10:37 04/17/17 10:37 04/17/17 10:37 04/17/17 10:37 04/17/17 10:37 Internal Medicine: Result - Labs CBC & Chem 7: 04/17/17 05:23 04/17/17 05:23 Labs: Short CBC 04/17/17 Range/Units 05:23 WBC 6.2 (4.3-11.1) K/mcL Hgb 10.9 L (11.5-15.4) g/dL Hct 29.9 L (35.3-44.9) % Plt Count 123 L (140-400) K/mcL Neutrophils # 3.7 (1.6-8.9) K/mcL BMP 04/17/17 05:23 Sodium 132 L Potassium 3.8 Chloride 101 Carbon Dioxide 27 BUN 15 Creatinine 0.82 Glucose 226 H Calcium 9.2 - ABG Interpretation ABG results: PT/INR, D-dimer PT 11.0 Seconds (9.4-12.1) 04/14/17 14:23 - Attending Attestation The patient says she can not tolerate the sam in the left ankle/foot, can not bear weight yet stop IV vancomycin and start IV doxycycline, may discharge in the morning if improving on Doxy I examined this patient and my medical decision-making was reviewed with the Resident Physician. I agree with the documented findings, disposition and treatment plan as described except to the extent set forth below.
[2017-04-17] MEDS: Doxycycline 100 MG in 0.9 % Sodium Chloride Mini Bag 100 ML IVPB SCH (12:49)
[2017-04-17] MEDS ORDERED: Insulin LISPRO 300 UNITS/3 ML VIAL SQ SCH (21:00)
[2017-04-17] MEDS ORDERED: *HR* Morphine 2 MG/ML SYRINGE IVP ONE (23:50)
[2017-04-18] MEDS: Doxycycline 100 MG in 0.9 % Sodium Chloride 150 ML IVPB SCH ×2 (00:04→12:17)
[2017-04-18] MEDS: *HR* OxyCODONE/APAP 10/325 TABLET PO PRN ×4 (00:57→13:59)
[2017-04-18] MEDS: Doxycycline 100 MG in 0.9 % Sodium Chloride Mini Bag 100 ML IVPB SCH (00:59)
[2017-04-18] MEDS: *HR* Morphine 2 MG/ML SYRINGE IVP PRN ×2 (04:14→08:39)
[2017-04-18 04:49] VITALS: BP 191/78
[2017-04-18] MEDS: Lisinopril 20 MG TABLET PO SCH ×2 (06:05→08:44)
[2017-04-18] MEDS: *HR* Heparin 5,000 UNIT/ML VIAL SQ SCH (06:08)
[2017-04-18] MEDS: Insulin LISPRO 300 UNITS/3 ML VIAL SQ SCH ×2 (08:41→12:22)
[2017-04-18] MEDS: Aspirin 81 MG TAB.CHEW PO SCH (08:41)
[2017-04-18] MEDS: Famotidine 20 MG TABLET PO SCH (08:43)
[2017-04-18] MEDS: Nicotine 21 MG PATCH.TD24 TD SCH (08:43)
[2017-04-18] MEDS: Insulin DETEMIR 100 UNIT/ML X5UNITS SQ SCH (09:03)
--- NOTE | 2017-04-18 09:19 | Internal Med Progress Note ---
Date of Encounter: 04/18/17 Time of Encounter: 09:19 - Time Spent With Patient (1) Cellulitis of left lower extremity Current Visit: Yes Status: Acute Assessment and plan: Unable to ambulate or bear weight on her left leg. Painful to the touch. Ultrasound Doppler was negative for DVT. Blood cultures drawn on 04/15/17: Negative IV antibiotics: -Vancomycin 1000 mg IV Q12 (started on 04/15/17; day 3) Stopped on 04/17/17. -Zosyn 3.375 IV every 8 started on 04/15/17 and stopped on 04/17/17. COntinue doxyxycline IV day 2 Orthopedic surgery recommendations appreciated, consider discharge if no surgical procedures are recommended (2) Type 2 diabetes mellitus Current Visit: Yes Status: Chronic Assessment and plan: A1C 7.3%. -Continue insulin sliding scale -Glucose checks -Diabetic diet -Home medication: Metformin 850 mg PO BID WM Qualifiers: Diabetes mellitus complication status: with hyperglycemia Diabetes mellitus manager long term care insulin use: with manager long term care use Qualified Code(s): E11.65 - Type 2 diabetes mellitus with hyperglycemia; Z79.4 - superintendent container terminal (current) use of insulin; Z79.4 - shelter (current) use of insulin; Z79.4 - shelter ( current) use of insulin; Z79.4 - superintendent container terminal (current) use of insulin (3) COPD (chronic obstructive pulmonary disease) Current Visit: Yes Status: Chronic Assessment and plan: Patient is currently not in respiratory distress. -Stable on room air; O2 saturations morning was 96 Qualifiers: COPD type: unspecified COPD Qualified Code(s): J44.9 - Chronic obstructive pulmonary disease, unspecified (4) Essential hypertension Current Visit: Yes Status: Acute Assessment and plan: Continue home medications: -Chlorthalidone 25 mg PO daily -Lisinopril 40 mg PO daily -Simvastatin 20 mg PO at bedtime (5) DVT prophylaxis Current Visit: Yes Status: Acute Assessment and plan: Heparin 5000 SQ 12 - Subjective Interval history: still complaining of pain on the left lower extremity, no CP or SOB, no fever, no diarrhea or dysuria - Constitutional Vitals: Temp Pulse Resp BP Pulse Ox 98.3 F 69 16 191/78 97 04/18/17 04:48 04/18/17 04:48 04/18/17 04:48 04/18/17 04:48 04/18/17 04:48 General appearance: Present: cooperative, mild distress, A&O X 3, pleasant, answers questions appropriately - Head Head exam: Present: atraumatic, normocephalic - Eye Eye exam: Present: PERRL, conjuntiva pink, sclera anicteric Pupils: Present: PERRL - Neck Neck exam general surgery: Present: supple, trachea midline. Absent: lymphadenopathy - Respiratory Respiratory exam: Present: CTAB. Absent: accessory muscle use, rales, rhonchi, wheezes - Cardiovascular Cardiovascular exam: Present: RRR, +S1, +S2. Absent: diastolic murmur, gallop, rubs, systolic murmur - GI/Abdominal GI/Abdominal exam: Present: normal bowel sounds, soft, no peritoneal signs. Absent: distended, tenderness - Extremities Exam Extremities exam: Present: warm, radial pulses palpable and symmetrical. Absent : calf tenderness, cyanotic, pedal edema - Neurological Exam Neurological exam: Present: CN II-XII intact, oriented X3, no focal deficits. Absent: pronater drift, facial droop, speech deficit - Skin Skin exam: Present: dry. Absent: intact (erythema over left ankle has improved , induration and tenderness on left popliteal area) Internal Medicine: Result - Labs CBC & Chem 7: 04/17/17 05:23 04/17/17 05:23 - ABG Interpretation ABG results: PT/INR, D-dimer PT 11.0 Seconds (9.4-12.1) 04/14/17 14:23 Consult Discharge Plan - Plan Referrals: NONE,PCP [Primary Care Provider] -
--- NOTE | 2017-04-18 09:19 | Orthopedics Progress Note ---
Date of Encounter: 04/18/17 Time of Encounter: 07:40 - Assessment and Plan (1) Posterior left knee pain Current Visit: Yes Status: Acute Most likely the patient has a ruptured popliteal cyst. Also possibility of a popliteus tear. Recommend obtaining an MRI for her left knee. (2) Cellulitis of left lower extremity Current Visit: Yes Status: Acute Report history of cellulitis which has resolved with IV antibiotics. Distal possibility of a deep abscess that may be causing her pain. I will also recommend imaging of the left leg with an MRI also. Subjective Principal diagnosis: Left leg pain Interval history: Patient was admitted with left leg pain swelling and erythema. She was seen by Dr. Bae who ruled out compartment syndrome by taking intracompartmental pressures. The patient apparently had erythema and has been on IV antibiotics for several days now. The patient was signed off 2 days ago. The patient was complaining of significant pain last night and orthopedics was reconsulted. The patient states the pain is still in the back of her knee. She is doing much better now. Physical exam: This morning the patient was comfortably sleeping in no distress. When awoken, the patient was alert and oriented. She localizes pain to the back of her left knee. There is no erythema from the knee down the leg and no significant swelling. The patient does have swelling from the ankle into the foot. She has 2+ pitting edema of the dorsum of the foot, 1+ pitting edema on the dorsal of her paredes. She has no tenderness along the anterior aspect of the leg ankle along foot. Her compartments of the leg all soft with no signs of tension. The patient has visit tenderness in the popliteal fossa. No tenderness along the anterior joint line. She has significant pain with passive dorsiflexion of her foot all localized in the popliteal fossa. No pain at the ankle with side to side or plantarflexion of the ankle. No tenderness in the posterior calf, except for approximately was a popliteal fossa. Once again all compartments posteriorly over a soft touch. Dorsalis pedis pulse is 1 +. Sensation is intact distally. Patient has good motion of the toes and no pain with stretch although the great toe was avoided as she has recent toe surgery. Objective Vital signs: Vital Signs Temp Pulse Resp BP Pulse Ox 04/18/17 04:48 98.3 F 69 16 191/78 97 04/17/17 23:12 98.4 F 85 16 200/75 96 04/17/17 18:56 98.2 F 72 16 162/71 96 04/17/17 14:49 98.3 F 82 16 161/86 98 04/17/17 10:37 98.7 F 96 16 141/80 100 Intake and Output 04/17/17 04/18/17 04/18/17 23:59 07:59 15:59 Intake Total 780 / 780 390 / 390 Output Total 500 / 500 300 / 300 Balance 280 / 280 90 / 90 Intake: IV Fluids 150 / 150 Doxycycline 100 MG In 0.9 % 150 / 150 Sodium Chloride 150 ML @ 150 mls/hr IVPB Q12H [facility] Rx#: [id number] Oral 780 / 780 240 / 240 Output: Urine 500 / 500 300 / 300 Other: Meal Dinner Percent of Meal Consumed 100% Blood Glucose* 155 132 - Labs CBC & BMP: 04/17/17 05:23 04/17/17 05:23 Labs: Abnormal lab results RBC 3.46 M/mcL (3.82-4.97) L 04/17/17 05:23 Hgb 10.9 g/dL (11.5-15.4) L 04/17/17 05:23 Hct 29.9 % (35.3-44.9) L 04/17/17 05:23 MCHC 36.5 g/dL (31.6-35.5) H 04/17/17 05:23 Plt Count 123 K/mcL (140-400) L 04/17/17 05:23 MPV 9.2 fL (9.4-12.4) L 04/17/17 05:23 Sodium 132 mEq/L (136-145) L 04/17/17 05:23 Glucose 226 mg/dL (70-99) H 04/17/17 05:23 POC Glucose 132 (58-89) H 04/18/17 07:37 Hemoglobin A1c 7.3 % (-5.6) H 04/15/17 06:47 HDL Cholesterol 21 mg/dL (40-59) L 04/15/17 06:47 Cholesterol/HDL Ratio 5.4 (0-4.9) H 04/15/17 06:47 Consult Discharge Plan - Plan Referrals: NONE,PCP [Primary Care Provider] -
--- NOTE | 2017-04-18 13:37 | Discharge Summary ---
Date of Encounter: 04/18/17 Time of Encounter: 13:34 - Discharge Diagnosis (1) Cellulitis of left lower extremity Priority: Primary Status: Acute Comments: left lower extremity cellulitis (2) Type 2 diabetes mellitus Priority: Secondary Status: Chronic Qualifiers: Diabetes mellitus complication status: with hyperglycemia Diabetes mellitus retirement insulin use: with retirement use Qualified Code(s): E11.65 - Type 2 diabetes mellitus with hyperglycemia; Z79.4 - terminal carman (current) use of insulin; Z79.4 - terminal carman (current) use of insulin; Z79.4 - terminal carman ( current) use of insulin; Z79.4 - half-way (current) use of insulin (3) COPD (chronic obstructive pulmonary disease) Priority: Secondary Status: Chronic Qualifiers: COPD type: unspecified COPD Qualified Code(s): J44.9 - Chronic obstructive pulmonary disease, unspecified (4) Tobacco abuse Priority: Secondary Status: Chronic (5) Hepatitis C Priority: Secondary Status: Chronic Qualifiers: Viral hepatitis chronicity: chronic Hepatic coma status: without hepatic coma Qualified Code(s): B18.2 - Chronic viral hepatitis C (6) Essential hypertension Priority: Secondary Status: Acute (7) Spontaneous hematoma of lower leg Priority: Secondary Status: Acute Comments: MRI showed: 1. Fluid collection within the medial gastrocnemius muscle most consistent with an intramuscular hematoma. There is edema throughout the medial gastrocnemius muscle. Findings are most consistent with grade 2 strain. In the absence of a mechanism or etiology for intramuscular hematoma, follow-up imaging in 3-4 months is suggested to ensure resolution. 2. Grade 1 lateral gastrocnemius strain. - Discharge Medications Prescriptions: amLODIPine [Norvasc] 10 mg PO DAILY #30 tablet Doxycycline 100 mg PO BID #10 capsule Lisinopril [Zestril] 40 mg PO DAILY #30 tablet OxyCODONE/APAP 10/325 [Percocet 10/325 MG] 1 each PO Q6H PRN #25 tablet PRN Reason: Pain Home Medications: Albuterol Neb [Proventil Neb] 2.5 mg IH Q6H PRN 11/11/16 [History] Albuterol Sulfate [Albuterol Inhaler] 2 puff IH Q6HR PRN 11/11/16 [History] Insulin Glargine [Lantus] 30 unit SQ QAM 11/11/16 [History] Metformin HCl [Glucophage] 1,000 mg PO BID 11/11/16 [History] Polyethylene Glycol 3350 [Purelax] 17 gm PO DAILY PRN 11/11/16 [History] Chlorthalidone 25 mg PO DAILY 04/14/17 [History] Cyclobenzaprine [Flexeril] 10 mg PO HS 04/14/17 [History] Docusate [Colace] 100 mg PO TID 04/14/17 [History] Gabapentin [Neurontin] 300 mg PO TID 04/14/17 [History] Lidocaine 1 appl TP QID PRN 04/14/17 [History] Doxycycline 100 mg PO BID #10 capsule 04/18/17 [Rx] Lisinopril [Zestril] 40 mg PO DAILY #30 tablet 04/18/17 [Rx] OxyCODONE/APAP 10/325 [Percocet 10/325 MG] 1 each PO Q6H PRN #25 tablet [Rx] amLODIPine [Norvasc] 10 mg PO DAILY #30 tablet 04/18/17 [Rx] Allergies/Adverse Reactions: 3 Allergy/AdvReac Type Severity Reaction Status Date / Time acetaminophen Allergy Gastrointestinal Verified 04/14/17 14:08 Upset latex Allergy Hives Verified 04/14/17 14:08 propoxyphene [From Darvon] Allergy Hives Verified 04/14/17 14:08 ondansetron AdvReac Vomiting Verified 04/14/17 14:08 [From Zofran (as hydrochloride)] Procedures/tests Complete & Pending: Procedures Performed prior 72 hours Category Date Time Status MR lower leg LT wo/w con [MR] Stat MRI 04/18/17 09:25 Draft Date of admission: 04/15/17 00:12 Primary care physician: PCP NONE Consults: 04/17/17 10:17 Consult to Occupational Therapy [CONS] Routine Comment: Evaluate, develop and implement POC Reason for Consult: Unable to ambulate/bear weight due to cellulitis Consult to Physical Therapy [CONS] Routine Comment: Evaluate, develop and implement POC Reason for Consult: Unable to ambulate/bear weight due to cellulitis 04/17/17 23:51 Consult to Orthopedic Surgery [CONS] Stat Consulting Provider: [facility] Reason for Consult: Dr. Arango concerned for caompartment syndrom Call Completed: Yes - Patient Status Disposition: Home, Self-Care Condition: Good Overall status at discharge: patient is progressing back to baseline - Discharge Instructions Follow Up With: NONE,PCP [Primary Care Provider] - Additional Instructions: Follow up with a primary care physician within the next 7 days. Continue doxyxycline for 5 more days. Start amlodipine for better blood pressure control. Avoid NSAIDS. - Diet and Activity Activity: increase activity as tolerated Diet: diabetic diet Hospital course: Ms. Casper is a 61 year old female with past medical history of arthritis, COPD not oxygen dependant, diabetes insulin dependant, cirrhosis, hepatitis C, hypertension and depression. Patient presented to the ED with complaints of left lower extremity pain and swelling. Patient stated she developed sudden onset left lower extremity pain and swelling about 2-3 days prior to admission . Symptoms gradually worsened. Edema also worsening. No history of injury or insect bite. Described the pain as sharp and burning area and rated it 8/10. Symptoms were worse with weightbearing. No alleviating factors. Denied chest pain or shortness of breath or palpitations. No abdominal pain or vomiting or fever. No other associated symptoms. No other acute complaints. Initial workup in the ED was negative. Ultrasound Doppler of left lower extremity was negative for DVT. Orthopedics was consulted from ED, recommended an MRI that showed a muscular left gastrocnemiuns hematoma. Was unable to ambulate or bear weight on her left leg. Blood cultures drawn on 04/15/17: Negative IV antibiotics used: -Vancomycin 1000 mg IV Q12 (started on 04/15/17; had it for 3 days) Stopped on 04/17/17. -Zosyn 3.375 IV every 8 started on 04/15/17 and stopped on 04/17/17. Was started and improved on doxyxycline IV day 2 A1C was 7.3% - Time Spent with Patient Total time spent providing and/or coordinating discharge services: Greater than 30 minutes (40 min) - Constitutional Vitals: Temp Pulse Resp BP Pulse Ox 98.3 F 69 16 191/78 97 04/18/17 04:48 04/18/17 04:48 04/18/17 04:48 04/18/17 04:48 04/18/17 04:48 General appearance: Present: cooperative, mild distress, A&O X 3, pleasant, answers questions appropriately Exam: - Head Head exam: Present: atraumatic, normocephalic - Eye Eye exam: Present: PERRL, conjuntiva pink, sclera anicteric Pupils: Present: PERRL - Neck Neck exam general surgery: Present: supple, trachea midline. Absent: lymphadenopathy - Respiratory Respiratory exam: Present: CTAB. Absent: accessory muscle use, rales, rhonchi, wheezes - Cardiovascular Cardiovascular exam: Present: RRR, +S1, +S2. Absent: diastolic murmur, gallop, rubs, systolic murmur - GI/Abdominal GI/Abdominal exam: Present: normal bowel sounds, soft, no peritoneal signs. Absent: distended, tenderness - Extremities Exam Extremities exam: Present: warm, radial pulses palpable and symmetrical. Absent : calf tenderness, cyanotic, pedal edema - Neurological Exam Neurological exam: Present: CN II-XII intact, oriented X3, no focal deficits. Absent: pronater drift, facial droop, speech deficit - Skin Skin exam: Present: dry. Absent: intact (erythema over left ankle has improved , induration and tenderness on left popliteal area)
[2017-04-18] MEDS ORDERED: amLODIPine 5 MG TABLET PO SCH (13:45)
== END 2017-04-18 15:07 | disposition home or self-care (01) | DRG 603 ==
LOC: 3ANU 13:39 → EMEROO 13:39 → 3ANU 19:08 → SUATTDRO 04-15 00:12
PROVIDERS: ADMIT Family Medicine; ATTEND Internal Medicine